=== PATIENT | female | born 1940 | race Caucasian/White ===

== ENCOUNTER 2017-01-18 16:53 | Emergency (ER) | payer MEDICARE, BC ==
[~2017-01-18 16:53] MED LIST: AMOX1TAB61 PO; IBUP-1227 PO; LOTE5DRO2 EACHEYE; NITR100C62 PO; PHEN-318 PO; [UNRECOGNIZED DRUG - OTHER]
[2017-01-18] MEDS ORDERED: CEPH500T PO (17:19)
[2017-01-18] MEDS ORDERED: MUPI15CR TP (17:19)
--- NOTE | 2017-01-18 17:23 | PHYS DOC ---
General Chief Complaint: LACERATION/AVULSION Stated Complaint: LACERATION LFT ARM Time Seen by MD: 17:17 Source: patient Exam Limitations: no limitations Problems: History of Present Illness Initial Comments Pt is 76/F to ED c/o left arm lac. 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 Caused skin avulsion dorsal left forearm. Td status uncertain. Pt skin very thin/friable, avulses easily. No numbness/tingling/weakness/ radiating sx, bleeding controlled prior to arrival. Onset: just prior to arrival Severity: moderate Pain/Injury Location: left forearm Method of Injury: direct blow Modifying Factors: worse with jarring, worse with movement, improves with rest Allergies: Coded Allergies: simvastatin (Verified Adverse Reaction, Severe, 06/25/14) codeine (Verified Adverse Reaction, Intermediate, 06/25/14) fluvastatin (Verified Adverse Reaction, Intermediate, 06/25/14) tramadol (Verified Adverse Reaction, Intermediate, 06/25/14) Past Medical History Medical History: other (asthma, GERD, HLP) Surgical History: noncontributory, other Family History Significant Family History: no pertinent family hx Social History Smoker: non-smoker Alcohol: none Drugs: none Review of Systems Constitutional: denies chills, denies fever Respiratory: denies cough, denies shortness of breath Cardiovascular: denies chest pain, denies palpitations Gastrointestinal: denies nausea, denies vomiting Genitourinary: denies frequency, denies hematuria Musculoskeletal: see HPI, denies back pain, denies neck pain Skin: see HPI Psychiatric/Neurological: see HPI Physical Exam General Appearance: WD/WN, no apparent distress HEENT: normal ENT inspection Neck: non-tender, supple Cardiovascular/Respiratory: normal peripheral pulses, no respiratory distress Elbow/Forearm: normal ROM (2cm stellate with very superficial flap avulsion dorsal left forearm no bleeding or FB. Skin too fragile to attempt closure) Neurologic/Tendon: normal sensation, normal motor functions, normal tendon functions, responds to pain, no evidence tendon injury Psychiatric: alert, oriented x 3 Skin: warm/dry (L forearm as above) Orders, Labs, Meds Td updated, will need to heal by 2nd intention. Pt expressed agreement/ understanding. Departure Time of Disposition: 17:21 Disposition: 01 HOME, SELF-CARE Diagnosis: skin avulsion left forearm Condition: GOOD Patient Instructions: Deep Skin Avulsion, VIS, Tetanus, Diphtheria (Td); Tetanus, Diphtheria, Pertussis (Tdap) - CDC Additional Instructions: OTC tylenol/ibuprofen as needed. Keep wound covered with sterile dressing. Wash wound twice daily with soap and warm water, blot dry. Change dressing/apply bactroban ointment each dressing change. Allow wound to air dry one hour daily. Rx: cephalexin Follow up with your doctor in 3 days for wound check. Return to ED with new or changing symptoms. JUVE ROLON DO January 18, 2017 17:23
[2017-01-18 17:38] VITALS: BP 151/75
[2017-01-18] MEDS ORDERED: CEPHALEXIN 500 MG CAPSULE PO ONE ×2 (17:45→18:15)
[2017-01-18] MEDS ORDERED: DIPHTH,PERTUSS(ACELL),TET TOX 0.5 ML DISP.SYRIN. VAX IM ONE ×2 (17:45→18:15)
== END 2017-01-18 17:38 | disposition home or self-care (01) ==
LOC: ER 16:53
DX: S51.802A Unspecified open wound of left forearm, initial encounter (principal); Z88.6 Allergy status to analgesic agent; Z88.8 Allergy status to other drugs, medicaments and biological substances; K21.9 Gastro-esophageal reflux disease without esophagitis; J45.909 Unspecified asthma, uncomplicated; E78.5 Hyperlipidemia, unspecified; W22.8XXA Striking against or struck by other objects, initial encounter; Y93.89 Activity, other specified; Y99.8 Other external cause status; Y92.89 Other specified places as the place of occurrence of the external cause
CPT/HCPCS: 90471; 90715; 99283-25

== ENCOUNTER → 2017-02-08 | Outpatient (CLI) | payer MEDICARE, BC ==
[2017-01-18 17:38] VITALS: BP 151/75
[~2017-02-08] MED LIST changes: +CEPH500T PO; +MUPI15CR TP
--- NOTE | 2017-02-08 11:49 | RAD ---
Indication left upper quadrant pain radiating into the back for 2 months. Supine and upright films of the abdomen were obtained The lung bases are clear. The abdominal gas pattern is normal. A moderate the large amount of stool is noted in the large bowel. Postoperative changes are noted in the lower lumbar spine. There is a clip in the gallbladder fossa. No organomegaly or abnormal calculi are seen. There is no free air. IMPRESSION: No acute or significant finding seen on plain films of the abdomen
== END | disposition home or self-care (01) ==
LOC: DXRADRC 11:22
PROVIDERS: ATTEND Physician Assistant
DX: R10.12 Left upper quadrant pain (principal)
CPT/HCPCS: 74020

== ENCOUNTER → 2017-02-11 | Outpatient (CLI) | payer MEDICARE, BC ==
[2017-01-18 17:38] VITALS: BP 151/75
[~2017-02-11] MED LIST changes: +IOHEXOL 240 MG/ML 50ML VIAL. ONE
[2017-02-11] MEDS: IOHEXOL 300 MG/ML 75 ML VIAL. IV ONE (09:04)
--- NOTE | 2017-02-11 10:28 | RAD ---
CT of the abdomen and pelvis with contrast, 02/21/2017: History: Left-sided pain Multidetector CT imaging was performed following oral and IV administration of contrast. The gallbladder is surgically absent. There is no evidence of a hepatic mass or significant bile duct dilatation. The pancreas is unremarkable. Calcified splenic granulomata are present. The spleen is of normal size. No renal or adrenal abnormality is detected. There is moderate aortic calcific plaquing without evidence of any present. No abdominal or pelvic adenopathy is seen. The uterus is unremarkable. The bowel loops are not dilated. There is a moderate amount of stool in the right colon. The appendix is not delineated. No dilated appendix or pericecal inflammatory process is seen. No free fluid or free air is evident in the abdomen or pelvis. There are scattered degenerative changes in the spine. There has been previous posterior spinal fusion and instrumentation at at L4-5. There is a mild spondylolisthesis at that level. IMPRESSION: No acute abdominal or pelvic abnormality is detected. PQRS Compliance Statement: One or more of the following individualized dose reduction techniques were utilized for this examination: 1. Automated exposure control 2. Adjustment of the mA and/or kV according to patient size 3. Use of iterative reconstruction technique
== END | disposition home or self-care (01) ==
LOC: CT 07:47
PROVIDERS: ATTEND Physician Assistant
DX: R10.9 Unspecified abdominal pain (principal); Z98.1 Arthrodesis status
CPT/HCPCS: 74177; Q9966; Q9967

== ENCOUNTER 2017-06-28 10:21 | Observation (INO) | payer MEDICARE, BC ==
[~2017-06-28] VITALS: Ht 165.1 cm; Wt 85.1 kg
[~2017-06-28 10:21] MED LIST changes: -IOHEXOL 240 MG/ML 50ML VIAL. ONE
[2017-06-28] MEDS ORDERED: IV NORMAL SALINE 1,000ML 1,000 ML IV SCH ×2 (10:42→13:18)
[2017-06-28] MEDS ORDERED: 0.9 % SODIUM CHLORIDE 10 ML DISP.SYRIN. IV PRN (10:45)
--- NOTE | 2017-06-28 10:59 | PHYS DOC ---
Past History Past Medical History: Asthma, GERD, High Cholesterol, UTI, Other Past Surgical History: Cholecystectomy, Lumbar Laminectomy, Tonsillectomy, Other Additional Past Surgical Histo: surgery 2, Hall's cyst behind left knee, Smoking: Non-smoker Alcohol Use: None Drug Use: None Adult General Chief Complaint Chief Complaint: CHEST PAIN HPI HPI This patient is a pleasant 76-year-old female with a history of chest pain that began yesterday evening. Last month she had right rotator cuff surgery has been doing well we happened since. She does have a history of hypertension, hyperlipidemia, asthma, anxiety, chronic lower back pain, chronic peripheral neuropathy, chronic intermittent reflux who presents with chest pain described as sharp and stabbing underneath the left breast. She's never had pain like this in the past pain began last night at rest while she is sitting a chair. It is short-lived lasting anywhere from 3-10 seconds with no radiation to the shoulder, back, abdomen. It is worsened with certain chest wall movements and shoulder movements. Patient denies any nausea, vomiting, diarrhea, fevers, chills, URI symptoms like cough or ear pain. Patient does have chronic rhinorrhea secondary to seasonal allergies. Patient's pains is sharp again worsened with movements better with time. Patient says pain is nonexistent at this time but has had several episodes during our history taking. She says at this point it is a maximum of 610 she's been taken Motrin daily to treat her shoulder pain and refuses to take [facility] as she's been prescribed. She's had a prior stress test several years ago and a prior catheterization. This last catheterization was sometime ago and she does not know results. Patient denies any trauma to her chest wall, travel outside the country. She denies any recent antibiotic use or sick contacts. Dr. Lopez is her cath lab tech, Dr. Bergeron is her PCP, is her wire frame dipper Differential diagnosis for chest pain: Pericarditis, myocarditis, endocarditis, pneumothorax, pneumonia, aortic dissection, esophageal spasm, esophagitis, peptic ulcer disease, acute coronary syndrome, mediastinitis, Boerhaave syndrome , musculoskeletal chest wall pain, costochondritis, intercostal strain, rib fracture, pulmonary contusion, pneumonitis, pleural effusion, pericardial effusion, pericardial tamponode, and pleurisy. Review of Systems Review of Systems Constitutional: Denies fever or chills [] Eyes: Denies change in visual acuity, redness, or eye pain [] HENT: Denies sore throat she does have nasal congestion [] Respiratory: Denies cough or shortness of breath [] Cardiovascular: No additional information not addressed in HPI [] GI: Denies abdominal pain, nausea, vomiting, bloody stools or diarrhea [] : Denies dysuria or hematuria [] Musculoskeletal: Denies back pain or joint pain [] Integument: Denies rash or skin lesions [] Neurologic: Denies headache, focal weakness she does have chronic sensory changes after surgery in her left lower leg that causes chronic pain and paresthesias Endocrine: Denies polyuria or polydipsia [] Current Medications Current Medications Current Medications Medications (Trade) Dose Ordered Sig/Hetal Start Time Stop Time Status Last Admin Dose Admin Aspirin (Children'S Aspirin) 243 mg 1X ONCE 06/28/17 10:45 06/28/17 10:46 UNV Sodium Chloride (Normal Saline Flush) 10 ml QSHIFT PRN 06/28/17 10:45 UNV Allergies Allergies Allergies Coded Allergies Type Severity Reaction Last Updated Verified simvastatin Adverse Reaction Severe 06/25/14 Yes codeine Adverse Reaction Intermediate 06/25/14 Yes fluvastatin Adverse Reaction Intermediate 06/25/14 Yes tramadol Adverse Reaction Intermediate 06/25/14 Yes Physical Exam Physical Exam Vital signs recorded on the chart.Hypertension noted Constitutional: Well developed, well nourished, patient obviously uncomfortable grabbing in her chest periodically during the history. HENT: Normocephalic, atraumatic, bilateral external ears normal, oropharynx moist, no oral exudates, nose normal. [] Eyes: PERRLA, EOMI, conjunctiva normal, no discharge. [] Neck: Normal range of motion, no tenderness, supple, no stridor. [] Cardiovascular:Heart rate regular rhythm, no murmur she has chest wall tenderness to palpation. Reproducible on exam over the left breast with no obvious changes in skin color tone or with rash. Lungs & Thorax: Bilateral breath sounds clear to auscultation [] Abdomen: Bowel sounds normal, soft, no tenderness, no masses, no pulsatile masses. [] Skin: Warm, dry, no erythema, no rash. [] Extremities: no cyanosis, no clubbing, ROM intact, no edema. She has marked tenderness to palpation over the left lower leg on the medial aspect of the knee with scar is. Patient claims this is chronic in nature and not new there is no localized swelling. Patient has had swelling in his lower leg in the past but nothing at this time. [] Neurologic: Alert and oriented X 3, normal motor function, normal sensory function, she has decreased sensation to the medial aspect of the left lower leg to light touch.[] Psychologic: Affect normal, judgement normal, she is somewhat anxious.[] Current Patient Data Vital Signs Vital Signs Date Time Temp Pulse Resp B/P (MAP) Pulse Ox O2 Delivery O2 Flow Rate FiO2 06/28/17 10:21 97.9 77 20 99 Room Air Lab Results Laboratory Tests Test 06/28/17 11:02 06/28/17 12:08 White Blood Count 5.4 x10^3/uL (4.0-11.0) Red Blood Count 4.45 x10^6/uL (3.50-5.40) Hemoglobin 12.8 g/dL (12.0-15.5) Hematocrit 38.2 % (36.0-47.0) Mean Corpuscular Volume 86 fL (79-100) Mean Corpuscular Hemoglobin 29 pg (25-35) Mean Corpuscular Hemoglobin Concent 33 g/dL (31-37) Red Cell Distribution Width 14.3 % (11.5-14.5) Platelet Count 251 x10^3/uL (140-400) Neutrophils (%) (Auto) 70 % (31-73) Lymphocytes (%) (Auto) 18 % (24-48) L Monocytes (%) (Auto) 8 % (0-9) Eosinophils (%) (Auto) 3 % (0-3) Basophils (%) (Auto) 1 % (0-3) Neutrophils # (Auto) 3.8 x10^3uL (1.8-7.7) Lymphocytes # (Auto) 1.0 x10^3/uL (1.0-4.8) Monocytes # (Auto) 0.4 x10^3/uL (0.0-1.1) Eosinophils # (Auto) 0.2 x10^3/uL (0.0-0.7) Basophils # (Auto) 0.1 x10^3/uL (0.0-0.2) D-Dimer (Stacia) 0.69 mg/L (0.00-0.50) H Sodium Level 141 mmol/L (136-145) Potassium Level 3.8 mmol/L (3.5-5.1) Chloride Level 104 mmol/L (98-107) Carbon Dioxide Level 29 mmol/L (21-32) Anion Gap 8 (6-14) Blood Urea Nitrogen 14 mg/dL (7-20) Creatinine 1.1 mg/dL (0.6-1.0) H Estimated GFR (Cockcroft-Gault) 48.3 BUN/Creatinine Ratio 13 (6-20) Glucose Level 93 mg/dL (70-99) Calcium Level 9.4 mg/dL (8.5-10.1) Magnesium Level 2.1 mg/dL (1.8-2.4) Total Bilirubin 0.4 mg/dL (0.2-1.0) Aspartate Amino Transferase (AST) 21 U/L (15-37) Alanine Aminotransferase (ALT) 26 U/L (14-59) Alkaline Phosphatase 42 U/L (46-116) L Creatine Kinase 98 U/L (26-192) Creatine Kinase MB (Mass) 0.9 ng/mL (0.0-3.6) Creatine Kinase MB Relative Index 0.9 % (0-4) Troponin I Quantitative < 0.017 ng/mL (0-0.055) TT-Wqb-M-Type Natriuretic Peptide 201 pg/mL (0-449) Total Protein 6.6 g/dL (6.4-8.2) Albumin 3.6 g/dL (3.4-5.0) Albumin/Globulin Ratio 1.2 (1.0-1.7) Lipase 121 U/L (73-393) Urine Collection Type Unknown Urine Color Yellow Urine Clarity Clear Urine pH 5.0 Urine Specific [place] <=1.005 Urine Protein Neg (NEG-TRACE) Urine Glucose (UA) Neg mg/dL (NEG) Urine Ketones (Stick) Neg mg/dL (NEG) Urine Blood Trace (NEG) Urine Nitrite Neg (NEG) Urine Bilirubin Neg (NEG) Urine Urobilinogen Dipstick 0.2 mg/dL (0.2 mg/dL) Urine Leukocyte Esterase Mod (NEG) Urine RBC 0 /HPF (0-2) Urine WBC 1-4 /HPF (0-4) Urine Squamous Epithelial Cells Occ /LPF Urine Bacteria 0 /HPF (0-FEW) EKG EKG []EKG timed 10:30 AM read by me demonstrates a PTT of QRS normal sinus rhythm with a heart rate of 74 IA interval 174 which is normal, QRS width of 72 which is normal, QTC of 424 which is normal, patient is a slight abnormal left axis deviation no ST segment or T-wave changes consistent with acute coronary ischemia. Radiology/Procedures Radiology/Procedures [] [address] [address] IMAGING REPORT Signed PATIENT: TOMMIE MEDRANO ACCOUNT: [id number] : 1940 LOCATION: ER AGE: 76 SEX: F EXAM STATUS: REG ER ORD. PHYSICIAN: BO ELI MD REASON: recent surgery and chest pain PROCEDURE: CT ANGIOGRAPHY CHEST CT angiography chest 06/28/2017 Indication: Left chest pain with recent surgery to the right shoulder. Have of comparison: CT chest 09/23/2015 Technique: Multiple axial CT images of the chest were obtained after the administration of 60 mL Omnipaque 300 intravenously. Coronal and sagittal reformats are provided. Maximum intensity projection images of the pulmonary vasculature were performed. Findings: Subcentimeter calcified nodule is identified in the right thyroid gland measuring 3-4 mm. Few scattered subcentimeter hypodense nodules are identified. There are no pathologically enlarged axillary, mediastinal or hilar lymph nodes. Heart size is within normal limits. Thoracic aorta is mildly ectatic measuring 3.7 cm at the level of the proximal aortic arch. There is no pericardial effusion. There is adequate opacification the pulmonary arterial system. No filling defects are identified to suggest pulmonary embolism. There is a 3 mm solid noncalcified pulmonary nodule in the right middle lobe (series 4, image 85). This finding is stable dating back to 09/23/2015 and likely benign. There is a 3 mm calcified granuloma in the right lower lobe. There is subsegmental atelectasis in the lung bases bilaterally. There are no pleural effusions. No pulmonary vascular congestion or pneumothorax. No suspicious pulmonary infiltrates. Calcified granuloma identified within the spleen. Otherwise, visualized upper abdomen is within normal limits. Impression: 1. No evidence for acute pulmonary embolism. 2. 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 Neck sign 3. Bibasilar subsegmental atelectasis without focal airspace consolidation. PQRS Compliance Statement: One or more of the following individualized dose reduction techniques were utilized for this examination: 1. Automated exposure control 2. Adjustment of the mA and/or kV according to patient size 3. Use of iterative reconstruction technique DICTATED AND SIGNED BY: JOSE D SALGUERO MD DATE: 06/28/17 1238 CC: BO ELI MD; MOHSEN [place]CLAIN ~ [place] [address] IMAGING REPORT Signed PATIENT: TOMMIE MEDRANO ACCOUNT: [id number] : 1940 LOCATION: ER AGE: 76 SEX: F EXAM STATUS: REG ER ORD. PHYSICIAN: BO ELI MD REASON: chest pain PROCEDURE: PORTABLE CHEST 1V Portable chest, 06/28/2017: History: Chest pain Comparison is made to a study from 09/22/2011. The heart size and pulmonary vascularity are normal. There are granulomatous calcifications in the left chest. No pulmonary infiltrates are seen. There is no evidence of pleural fluid. IMPRESSION: No acute cardiopulmonary abnormality is detected. DICTATED AND SIGNED BY: JG PAUL MD DATE: 06/28/17 1115 CC: BO ELI MD; MOHS[facility] MCLAIN ~ Course & Med Decision Making Course & Med Decision Making Pertinent Labs and Imaging studies reviewed. (See chart for details) Differential diagnosis for chest pain: Pericarditis, myocarditis, endocarditis, pneumothorax, pneumonia, aortic dissection, esophageal spasm, esophagitis, peptic ulcer disease, acute coronary syndrome, mediastinitis, Boerhaave syndrome , musculoskeletal chest wall pain, costochondritis, intercostal strain, rib fracture, pulmonary contusion, pneumonitis, pleural effusion, pericardial effusion, pericardial tamponode, and pleurisy. Was considered upon patient arrival my initial concern was pulmonary ecchymosis and given recent history of surgery and acute onset of pleuritic chest pain. Patient denies any recent URI symptoms other than chronic congestion this may help represent pericarditis or another inflammatory processes of the heart. Patient also has had history of high cholesterol and hypertension and a prior catheterization. It is likely that she has significant heart disease although not demonstrating any sign of injury pattern at this time on initial EKG. Patient has never had chest pain like this in the past so she will likely require hospitalization despite the findings today. Time is now 12 PM patient feels markedly better is resting with no repeat episodes of her chest pain. Patient has an elevated d-dimer and given her recent history of surgery. Is positive as of evidence below. Patient will need a CT angios the chest rule out PE. Criteria: Age < than 50 years Heart rate < 100 Oxygen saturation > 95% No hemoptysis No estrogen use No prior DVT or PE No unilateral leg swelling No surgery or trauma requiring hospitalization within the prior 4 weeks []Patient's troponin is negative, EKG is unremarkable and chest x-rays unremarkable as well. Patient has no evidence of congestive heart failure pneumothorax pneumonia or pneumomediastinum. But given the patient's new chest pain and risk factors likely that she is intermediate risk based on my heart score History: She is intermediate based on the history provided below. Age, risk factors and suspicious history Highly suspicious 2 points moderately suspicious 1. slightly suspicious 0 point EKG: ST segment depression 2. nonspecific repolarization disturbance 1. normal 0 point Age: Greater than 65 2 points, 65-45 1., less than 45 years old 0 points Risk factors:> 3 risk factors 2 points, 1-2 risk factors one point, no risk factors 0 point Troponin: > 2 times normal 2 points, 1-2 times normal 1., normal limits 0 point Total score: Score % pts MACE/n MACE Policy 0-3 32% 1.9% 0.05% Discharge 4-6 51% 413/3136 13% 1.3% Observation Risk management 7-10 17% 518/1045 50% 2.8% Observation Treatment, CAG Amf Mechanic note: Dr. GUCCI Barton Amf Mechanic called at of the service internal medicine service called at 1:15 PM Consult called back at 1:15 PM Discussed the case I presented and they agreed with admission. Time of acceptance 1:15 PM Impression: Chest pain unclear etiology, hypertension Dragon Disclaimer Edel Disclaimer This chart was dictated in whole or in part using Voice Recognition software in a busy, high-work load, and often noisy Emergency Department environment. It may contain unintended and wholly unrecognized errors or omissions. Departure Departure: Impression: Primary Impression: Chest pain Additional Impression: Hypertension Disposition: 09 ADMITTED INPATIENT Admitting Physician: Jan López Condition: GUARDED Referrals: MOHSEN MCLAIN (PCP) Problem Qualifiers BO ELI MD Jun 28, 2017 10:59
--- NOTE | 2017-06-28 11:04 | EKG ---
[address] [address] Test Date: 2017-06-28 Test Time: 09:02:29 Pat Name: TOMMIE MEDRANO Department: Room: Gender: F [employer] Worker: SORAYA: 1940 Requested By: BO ELI Order Number: [id number] Reading MD: Measurements Intervals [place] Rate: P: FL: QRS: QRSD: T: QT: QTc: Interpretive Statements
[2017-06-28 11:14] LABS: BASO # 0.1 x10^3/uL (0.0-0.2); BASO % 1 % (0-3); EOS # 0.2 x10^3/uL (0.0-0.7); EOS % 3 % (0-3); HEMATOCRIT 38.2 % (36.0-47.0); HEMOGLOBIN 12.8 g/dL (12.0-15.5); LYMPH % 18 % (24-48); MEAN CORPUSCULAR HEMOGLOBIN 29 pg (25-35); MEAN CORPUSCULAR HGB CONC 33 g/dL (31-37); MEAN CORPUSCULAR VOLUME 86 fL (79-100); MONO # 0.4 x10^3/uL (0.0-1.1); MONO % 8 % (0-9); NEUT # 3.8 x10^3uL (1.8-7.7); NEUT % 70 % (31-73); PLATELET COUNT 251 x10^3/uL (140-400); RED BLOOD COUNT 4.45 x10^6/uL (3.50-5.40); RED CELL DISTRIBUTION WIDTH 14.3 % (11.5-14.5); WHITE BLOOD COUNT 5.4 x10^3/uL (4.0-11.0)
[2017-06-28] MEDS ORDERED: LORazepam 2 MG/ML VIAL IV ONE (11:15)
[2017-06-28] MEDS ORDERED: ASPIRIN 81 MG TAB.CHEW PO ONE (11:15)
--- NOTE | 2017-06-28 11:18 | RAD ---
Portable chest, 06/28/2017: History: Chest pain Comparison is made to a study from 09/22/2011. The heart size and pulmonary vascularity are normal. There are granulomatous calcifications in the left chest. No pulmonary infiltrates are seen. There is no evidence of pleural fluid. IMPRESSION: No acute cardiopulmonary abnormality is detected.
[2017-06-28 11:38] LABS: ALBUMIN 3.6 g/dL (3.4-5.0); ALBUMIN/GLOBULIN RATIO 1.2 (1.0-1.7); CALCIUM 9.4 mg/dL (8.5-10.1); CREATININE 1.1 mg/dL (0.6-1.0); GFR 48.3; MAGNESIUM 2.1 mg/dL (1.8-2.4); POTASSIUM 3.8 mmol/L (3.5-5.1); TOTAL BILIRUBIN 0.4 mg/dL (0.2-1.0); TOTAL PROTEIN 6.6 g/dL (6.4-8.2)
[2017-06-28 12:29] LABS: BACTERIA,URINE 0 /HPF (0-FEW); BILIRUBIN,URINE NEG (NEG); CLARITY,URINE CLEAR; COLOR,URINE YELLOW; GLUCOSE,URINE NEG (NEG); NITRITE,URINE NEG (NEG); RBC,URINE 0 /HPF (0-2); UROBILINOGEN,URINE 0.2 mg/dL (0.2 mg/dL)
[2017-06-28 12:30] LABS: SQUAMOUS EPITHELIAL CELL,UR OCC /LPF
[2017-06-28] MEDS ORDERED: IOHEXOL 300 MG/ML 75 ML VIAL. IV ONE (12:30)
--- NOTE | 2017-06-28 12:48 | RAD ---
CT angiography chest 06/28/2017 Indication: Left chest pain with recent surgery to the right shoulder. Have of comparison: CT chest 09/23/2015 Technique: Multiple axial CT images of the chest were obtained after the administration of 60 mL Omnipaque 300 intravenously. Coronal and sagittal reformats are provided. Maximum intensity projection images of the pulmonary vasculature were performed. Findings: Subcentimeter calcified nodule is identified in the right thyroid gland measuring 3-4 mm. Few scattered subcentimeter hypodense nodules are identified. There are no pathologically enlarged axillary, mediastinal or hilar lymph nodes. Heart size is within normal limits. Thoracic aorta is mildly ectatic measuring 3.7 cm at the level of the proximal aortic arch. There is no pericardial effusion. There is adequate opacification the pulmonary arterial system. No filling defects are identified to suggest pulmonary embolism. There is a 3 mm solid noncalcified pulmonary nodule in the right middle lobe (series 4, image 85). This finding is stable dating back to 09/23/2015 and likely benign. There is a 3 mm calcified granuloma in the right lower lobe. There is subsegmental atelectasis in the lung bases bilaterally. There are no pleural effusions. No pulmonary vascular congestion or pneumothorax. No suspicious pulmonary infiltrates. Calcified granuloma identified within the spleen. Otherwise, visualized upper abdomen is within normal limits. Impression: 1. No evidence for acute pulmonary embolism. 2. 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 Neck sign 3. Bibasilar subsegmental atelectasis without focal airspace consolidation. PQRS Compliance Statement: One or more of the following individualized dose reduction techniques were utilized for this examination: 1. Automated exposure control 2. Adjustment of the mA and/or kV according to patient size 3. Use of iterative reconstruction technique
[2017-06-28] MEDS ORDERED: ACETAMINOPHEN 325 MG TABLET PO PRN (13:30)
[2017-06-28] MEDS ORDERED: MORPHINE SULFATE 2 MG/ML DISP.SYRIN. IV PRN (13:30)
[2017-06-28] MEDS ORDERED: ONDANSETRON PF 4 MG/2 ML VIAL. IV PRN (13:30)
[2017-06-28 15:01] VITALS: BP 144/68
[2017-06-28 15:03] VITALS: BP 144/68
[2017-06-28] MEDS ORDERED: ALBU1.25 NEB (18:39)
[2017-06-28] MEDS ORDERED: EZET10TA18 PO (18:39)
[2017-06-28] MEDS ORDERED: CALC1TAB75 PO (18:39)
[2017-06-28] MEDS ORDERED: PANT40TA5 PO (18:39)
[2017-06-28] MEDS ORDERED: FAMO40TA4 PO (18:39)
[2017-06-28] MEDS ORDERED: FLUT250D IH (18:39)
[2017-06-28] MEDS ORDERED: VITA1CAP PO (18:39)
[2017-06-28] MEDS ORDERED: ASPI-630 PO (18:39)
[2017-06-28] MEDS ORDERED: IBUP400T18 PO (18:40)
[2017-06-28] MEDS ORDERED: IBUPROFEN 400 MG TABLET. PO PRN (18:45)
--- NOTE | 2017-06-28 19:18 | HP ---
ADMIT DATE: 06/28/2017 HISTORY OF PRESENT ILLNESS: This patient is a 76-year-old female patient who came to the Emergency Room with a complaint of recurrent episodes of chest pain that started yesterday evening. Apparently, she had had rotator cuff surgery done last month specifically on 05/24/2017, and has been doing well and she normally sits and sleeps in a recliner and she started having acute severe pain that she rates about 6/10 in severity while sitting in a chair. Episodes of short lived, lasting anywhere between 3-10 seconds without any radiation to the shoulder, back, abdomen. It is worsened with certain chest wall movement and shoulder movements. She denied any nausea, vomiting, diarrhea, fever or chills. She does have a cough, but does have chronic rhinorrhea secondary to seasonal allergies. She had a total of about 7 of these episodes, but no nausea, no vomiting, no diaphoresis, no shortness of breath, they all brief. Apparently, she has had a stress test done several years ago as well as prior catheterization. Apparently both of them were unremarkable. Her last stress test was done at [facility] and apparently was unremarkable. PAST MEDICAL HISTORY: Significant for hypertension, hyperlipidemia, bronchial asthma, anxiety, chronic lower back pain, chronic peripheral neuropathy, gastroesophageal reflux disease. PAST SURGICAL HISTORY: Significant for 2 bladder surgeries, 2 back surgeries, cholecystectomy, bilateral cataract extraction, right shoulder surgery on 05/24/2017. She has also had an esophagogastroduodenoscopy and colonoscopy. ALLERGIES: She is apparently allergic to CODEINE, CRESTOR, SIMVASTATIN, AND TRAMADOL WELL PENICILLIN. MEDICATIONS: She is currently on following medications: She is on Augmentin 875 mg twice a day, cephalexin 500 mg 3 times a day, ibuprofen 200 mg, she is on Lotemax one drop to each eye 4 times a day, Bactroban cream applied topically twice a day. She is on nitrofurantoin 100 mg capsule twice a day, phenazopyridine 200 mg 3 times a day. FAMILY HISTORY: She has 1 older sister who of non-Hodgkin's lymphoma at age of 81. She has 1 younger sister who has osteoarthritis, had a total knee arthroplasty and peripheral neuropathy. Her father of multiple aneurysms at the age of 70. Her mother at age 91 because of old age, according to her, but she did have cervical cancer. SOCIAL HISTORY: She is , she has two daughters and 1 son. One daughter has breast cancer, the other one has thyroid cancer. She does not smoke, drink alcohol or use recreational drugs. 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 REVIEW OF SYSTEMS: The patient denied any blurring of vision. She has cataracts, but denied any glaucoma or macular degeneration. Denied any earache, tinnitus or sensorineural deafness. Denied any nosebleeds, stuffy nose or postnasal drip. Denied any sore throat, sore tongue, toothache, hoarseness of voice or difficulty swallowing. Denied any nausea, vomiting, diarrhea, did complain of constipation. Denied any hematemesis, melena or hematochezia. Denied any dysuria, frequency or hematuria. Did complain of chest pain, but denied any shortness breath, orthopnea, paroxysmal nocturnal dyspnea. She has chronic cough, but denied any phlegm or hemoptysis. Denied any dizziness, lightheadedness, or vertigo. Denied any chills, rigors or fever. PHYSICAL EXAMINATION: GENERAL: When I examined her, she looked well and was clearly in no apparent respiratory distress, pale, no jaundice, cyanosis or thyromegaly. No jugular venous distention. No limb edema. VITAL SIGNS: Her heart rate was 77, blood pressure was 140/85, temperature was 97.9, respiratory rate 20, and oxygen saturation was 99%. HEAD, EYES, EARS, NOSE AND THROAT: Showed normocephalic, atraumatic. NECK: Supple. HEART: Showed normal first and second heart sounds with no gallop, rub or murmur. CHEST: Clear to auscultation. No crepitation or rhonchi. ABDOMEN: Distended, soft, nontender. No guarding or rigidity. No organomegaly. Hernial orifices intact. Bowel sounds normal. NEUROLOGIC: She was awake, alert, responding appropriately. Cranial nerves intact. EXTREMITIES: She moves all her extremities without difficulty. She ambulates without assistance or assistive devices. LABORATORY DATA: While in the Emergency Room, she has had lab work done, which showed a serum sodium 141, potassium 3.8, chloride 104, bicarbonate 29, anion gap of 8, BUN 14, creatinine 1.1, estimated GFR was 48 mL per minute. Her glucose was 93, calcium was 9.4, magnesium was 2.1. Total bilirubin, AST, ALT, alkaline phosphatase were normal. Her total protein was 6.6, albumin 3.6 and lipase was 121. TSH was 1.5. White cell count was 5400, hemoglobin 12.8, hematocrit 38, MCV 86 and platelet count 251,000. Her prothrombin time was slightly elevated at 0.69 mg/dL. Urinalysis was essentially unremarkable. There is moderate amount of leukocyte esterase, 1-4 wbc's, and 0 bacteria. Her EKG showed that she was in sinus rhythm with a heart rate 74, AK interval of 174 milliseconds, QRS duration of 72 milliseconds and corrected QT interval of 424 which is normal. She has slight abnormal left axis deviation with no ST segment elevation or T-wave changes that is consistent with acute coronary ischemia. Given that chest pain and elevated D-dimer, she underwent a CT angiography of the chest, which basically showed no evidence of acute pulmonary embolism, mild ectasia of the ascending thoracic aorta measuring up to 3.7 cm with bibasilar subsegmental atelectasis without focal airspace consolidations. Her first set of cardiac enzyme was 0.017. She did have 2 more sets of cardiac enzyme. We consulted the aspnet developer for evaluation and she will have an echocardiogram and we will decide on further management accordingly. FLORES GUTIERREZ MD DR: RADHA/shorty JOB#: [id number] / [id number]
[2017-06-28 19:28] VITALS: BP 119/75
[2017-06-28] MEDS: ALBUTEROL SULFATE 2.5 MG/3 ML NEBU. NEB SCH (20:03)
[2017-06-28] MEDS: FLUTICASONE PROPIONATE 250 MCG IH SCH (20:03)
[2017-06-28] MEDS ORDERED: FAMOTIDINE 20 MG TABLET PO SCH (21:00)
[2017-06-28] MEDS ORDERED: NON FORMULARY ITEM (Albuterol Sulfate (Albuterol Sulfate Neb Soln) 1 VIAL) NEB SCH (21:00)
[2017-06-28 23:00] VITALS: BP 109/58
[2017-06-29 05:00] VITALS: BP 135/73
[2017-06-29 06:01] LABS: BASO # 0.1 x10^3/uL (0.0-0.2); BASO % 1 % (0-3); EOS # 0.2 x10^3/uL (0.0-0.7); EOS % 4 % (0-3); HEMATOCRIT 35.1 % (36.0-47.0); HEMOGLOBIN 11.6 g/dL (12.0-15.5); LYMPH # 0.9 x10^3/uL (1.0-4.8); LYMPH % 21 % (24-48); MEAN CORPUSCULAR HEMOGLOBIN 29 pg (25-35); MEAN CORPUSCULAR HGB CONC 33 g/dL (31-37); MEAN CORPUSCULAR VOLUME 87 fL (79-100); MONO # 0.4 x10^3/uL (0.0-1.1); MONO % 9 % (0-9); NEUT # 2.8 x10^3uL (1.8-7.7); NEUT % 65 % (31-73); PLATELET COUNT 214 x10^3/uL (140-400); RED BLOOD COUNT 4.03 x10^6/uL (3.50-5.40); RED CELL DISTRIBUTION WIDTH 14.1 % (11.5-14.5); WHITE BLOOD COUNT 4.4 x10^3/uL (4.0-11.0)
[2017-06-29 06:08] LABS: CALCIUM 9.1 mg/dL (8.5-10.1); CREATININE 0.9 mg/dL (0.6-1.0); GFR 60.9; POTASSIUM 4.1 mmol/L (3.5-5.1)
--- NOTE | 2017-06-29 07:52 | CARD ---
APPROVED REPORT EXAM: Two-dimensional and M-mode echocardiogram with Doppler and color Doppler. Other Information Quality : Good INDICATION Chest Pain 2D DIMENSIONS RVDd2.6 (2.9-3.5cm)Left Atrium(2D)3.2 (1.6-4.0cm) IVSd0.8 (0.7-1.1cm)Aortic Root(2D)3.1 (2.0-3.7cm) LVDd4.3 (3.9-5.9cm)LVOT Diameter2.1 (1.8-2.4cm) PWd1.0 (0.7-1.1cm)LVDs2.6 (2.5-4.0cm) FS (%) 30.0 %SV60.0 ml LVEF(%)60.0 (>50%) Aortic Valve AoV Peak Doni.112.2cm/sAoV VTI26.1cm AO Peak GR.5.0mmHgLVOT Peak Doni.115.4cm/s LVOT VTI 24.31cmAO Mean GR.3mmHg MITCHEL (VMAX)3.17ii6VSO (VTI)3.36cm2 Mitral Valve MV E Uerwfwzm273.1cm/sMV DECEL POIE169uy MV A Lwkxeaii764.3cm/sE/A Ratio0.9 Tricuspid Valve TR P. Kzcgwdqh984ew/sRAP NWURVXLO0xkWe TR Peak Gr.08eyVrPMQL81xpWx Pulmonary Vein S1 Qrluqreo02.9cm/sD2 Dywltlni50.1cm/s LEFT VENTRICLE The left ventricle is normal size. There is normal left ventricular wall thickness. The left ventricu lar systolic function is normal. The Ejection Fraction is 55-60%. There is normal LV segmental wall m otion. Transmitral Doppler flow pattern is Grade I-abnormal relaxation pattern. RIGHT VENTRICLE The right ventricle is normal size. The right ventricular systolic function is normal. ATRIA The left atrium size is normal. The right atrium size is normal. The interatrial septum is intact wit h no evidence for an atrial septal defect or patent foramen ovale as noted on 2-D or Doppler imaging. AORTIC VALVE The aortic valve is calcified but opens well. Doppler and Color Flow revealed trace aortic regurgitat ion. There is no significant aortic valvular stenosis. MITRAL VALVE The mitral valve is calcified but opens well. There is no evidence of mitral valve prolapse. There is no mitral valve stenosis. Doppler and Color-flow revealed trace mitral regurgitation. TRICUSPID VALVE The tricuspid valve is normal in structure and function. Doppler and Color Flow revealed mild tricusp id regurgitation. There is mild pulmonary hypertension. The PA pressure was estimated at 35 mmHg. The re is no tricuspid valve stenosis. PULMONIC VALVE The pulmonary valve is normal in structure and function. Doppler and Color Flow revealed trace to mil d pulmonic valvular regurgitation. There is no pulmonic valvular stenosis. GREAT VESSELS The aortic root is normal in size. The ascending aorta is normal in size. The IVC is normal in size a nd collapses >50% with inspiration. PERICARDIAL EFFUSION There is no evidence of significant pericardial effusion. Critical Notification Critical Value: No <Conclusion> The left ventricular systolic function is normal. The Ejection Fraction is 55-60%. There is normal LV segmental wall motion. Trace aortic regurgitation. Trace mitral regurgitation. Mild tricuspid regurgitation. There is mild pulmonary hypertension. The PA pressure was estimated at 35 mmHg. There is no evidence of significant pericardial effusion.
[2017-06-29 08:54] VITALS: BP 118/77
[2017-06-29] MEDS ORDERED: CALCIUM CARB/VIT D3 500/200 TABLET PO SCH (09:00)
[2017-06-29] MEDS ORDERED: ASPIRIN 81 MG TAB.CHEW PO SCH (09:00)
[2017-06-29] MEDS ORDERED: VITAMIN B COMPLEX CAPSULE. PO SCH (09:00)
[2017-06-29] MEDS ORDERED: PANTOPRAZOLE 40 MG TABLET. PO SCH (09:00)
[2017-06-29] MEDS ORDERED: EZETIMIBE 10 MG TABLET PO SCH (09:00)
--- NOTE | 2017-06-29 09:14 | PDOC2 ---
CONSULT Date of Admission DATE: 06/29/17 TIME: 08:57 Reason for Consult: chest pain Problem List Problems Medical Problems: (1) Chest pain Status: Acute (2) Hypertension Status: Acute History of Present Illness Ms Cisneros is a 76 year old female who presented to the ED with complaints of chest pain. She reports a tight feeling behind her left breast occurring both with rest and exertion and lasting only a couple of seconds. She had several episodes starting in the early am while in bed and reoccurring throughout the day so she presented for evaluation. She denies radiation or associated symptoms. She initially reported to the ED that the pain seemed to be associated with certain upper body movements but at this time is unsure. She does have a history of a mildly abnormal MPI in 2014 but elected medical management at that time. She is s/p right rotator cuff surgery last month and continues in rehab for this. She is still unable to lay flat at this time due to shoulder discomfort. She denies any dyspnea, palpitations, lightheadedness or syncope. She states she wants to go home. Past Medical History hypertension, hyperlipidemia, bronchial asthma, anxiety, chronic lower back pain , chronic peripheral neuropathy, GERD. echo <Conclusion> The left ventricular systolic function is normal. The Ejection Fraction is 55-60%. There is normal LV segmental wall motion. Trace aortic regurgitation. Trace mitral regurgitation. Mild tricuspid regurgitation. There is mild pulmonary hypertension. The PA pressure was estimated at 35 mmHg. There is no evidence of significant pericardial effusion. MPI 11/14/14 Conclusion 1. Regadenoson cardioisotope stress test showed small amount of anteroapical wall ischemia. 2. Normal left ventricle systolic function with ejection fraction >80%. 3. Low to intermediate risk for cardiovascular events. Past Surgical History 2 bladder surgeries, 2 back surgeries, cholecystectomy, bilateral cataract extraction, right shoulder surgery on 05/24/2017. Family History 1 older sister who of non-Hodgkin's lymphoma Her father of multiple aneurysms at the age of 70. additional family history consists of arthritis and cervical cancer, breast cancer. Social History She is a non smoker, no significant ETOH, no illicit drugs. She is with 3 children. Current Medications Current Medications Aspirin (Children'S Aspirin) 243 mg 1X ONCE PO Last administered on t 11:09; Start 06/28/17 at 11:15; Stop 06/28/17 at 11:16; Status DC Sodium Chloride 1,000 ml @ 1,000 mls/hr Q1H IV Last administered on 11:08; Start 06/28/17 at 10:42; Stop 06/28/17 at 11:41; Status DC Sodium Chloride (Normal Saline Flush) 10 ml QSHIFT PRN IV AFTER MEDS AND BLOOD DRAWS; Start 06/28/17 at 10:45 Fentanyl Citrate (Fentanyl 2ml Vial) 50 mcg 1X ONCE IV Last administered on 11:11; Start 06/28/17 at 11:15; Stop 06/28/17 at 11:16; Status DC Lorazepam (Ativan) 1 mg 1X ONCE IV Last administered on 06/28/17 11:14; Start 06/28/17 at 11:15; Stop 06/28/17 at 11:16; Status DC Iohexol (Omnipaque 300 Mg/ml) 75 ml 1X ONCE IV ; Start 06/28/17 at 12:30; Stop 06/28/17 at 12:31; Status DC Ondansetron HCl (Zofran) 4 mg PRN Q4HRS PRN IV NAUSEA/VOMITING; Start at 13:30; Stop 06/29/17 at 13:29 Morphine Sulfate (Morphine 2mg Syringe) 2 mg PRN Q2HR PRN IV PAIN; Start 06/28 at 13:30; Stop 06/29/17 at 13:29 Sodium Chloride 1,000 ml @ 100 mls/hr Q10H IV ; Start 06/28/17 at 13:18; Stop 06/28/17 at 16:57; Status DC Acetaminophen (Tylenol) 650 mg PRN Q4HRS PRN PO FEVER; Start 06/28/17 at 13:30 ; Stop 06/29/17 at 13:29 Aspirin (Children'S Aspirin) 81 mg DAILY PO ; Start 06/29/17 at 09:00 EZETIMIBE (Zetia) 10 mg DAILY PO ; Start 06/29/17 at 09:00 Pantoprazole Sodium (Protonix) 40 mg DAILY PO ; Start 06/29/17 at 09:00 Vitamin B Complex 1 cap DAILY PO ; Start 06/29/17 at 09:00 Non-Formulary Medication 1 vial BID NEB ; Start 06/28/17 at 21:00; Status UNV Calcium/Vitamin D (Oscal D 500mg/ 200uts) 1 tab DAILY PO ; Start 06/29/17 at 09 :00 Famotidine (Pepcid) 40 mg HS PO Last administered on 06/28/17 20:03; Start 06/28/17 at 21:00 Non-Formulary Medication 250 mcg BID IH Last administered on 06/28/17 20:03; Start 06/28/17 at 21:00 Ibuprofen (Motrin) 400 mg PRN Q6HRS PRN PO PAIN / TEMP; Start 06/28/17 at 18: 45 Albuterol Sulfate (Ventolin) 2.5 mg RTBID NEB Last administered on 06/28/17 20:03; Start 06/28/17 at 20:00 Active Scripts Active Reported Ibuprofen 400 Mg Tablet 1 Tab PO PRN Q6HRS Aspirin 81 Mg Tab.chew 81 Mg PO DAILY Vitamin B Complex 1 Each Capsule 1 Each PO DAILY Calcium 600 + Vit D 200 Tablet (Calcium Carbonate/Vitamin D3) 1 Each Tablet 1 Each PO DAILY Flovent 250MCG Diskus (Fluticasone Propionate) 250 Mcg Disk.w.dev 250 Mcg IH BID Albuterol Sulfate Neb Soln (Albuterol Sulfate) 1.25 Mg/3 Ml Vial.neb 1 Vial NEB BID Famotidine 40 Mg Tablet 1 Tab PO HS Pantoprazole Sodium 40 Mg Tablet.dr 1 Tab PO DAILY Zetia (Ezetimibe) 10 Mg Tablet 1 Tab PO DAILY Allergies: Coded Allergies: Sulfa (Sulfonamide Antibiotics) (Verified Allergy, Severe, HIVES, 06/28/17 ) acetaminophen (Verified Allergy, Severe, DISORIENTED, VOMITING VIOLENT, ) ciprofloxacin (Verified Allergy, Severe, HIVES, 06/28/17) oxycodone (Verified Allergy, Severe, DISORIENTED, VOMITING VIOLENT, ) simvastatin (Verified Adverse Reaction, Severe, 06/25/14) codeine (Verified Adverse Reaction, Intermediate, 06/25/14) fluvastatin (Verified Adverse Reaction, Intermediate, 06/25/14) tramadol (Verified Adverse Reaction, Intermediate, 06/25/14) Review of System as per HPI or negative General: Alert, Oriented X3, Cooperative, No acute distress HEENT: Atraumatic, EOMI Lungs: Clear to auscultation, Normal air movement Heart: Regular rate, Normal S1, Normal S2, No murmurs, Other (no gallops, clicks or rubs) Abdomen: Normal bowel sounds, Soft, No tenderness Extremities: No clubbing, No cyanosis, Normal pulses Neuro: Normal speech Psych/Mental Status: Mental status NL, Mood NL VITALS Vital Signs Date Time Temp Pulse Resp B/P (MAP) Pulse Ox O2 Delivery O2 Flow Rate FiO2 06/29/17 05:00 97.8 81 20 135/73 (93) 97 Room Air Labs Laboratory Tests Test 06/28/17 11:02 06/28/17 12:08 06/28/17 19:10 06/29/17 00:37 White Blood Count 5.4 x10^3/uL (4.0-11.0) Red Blood Count 4.45 x10^6/uL (3.50-5.40) Hemoglobin 12.8 g/dL (12.0-15.5) Hematocrit 38.2 % (36.0-47.0) Mean Corpuscular Volume 86 fL (79-100) Mean Corpuscular Hemoglobin 29 pg (25-35) Mean Corpuscular Hemoglobin Concent 33 g/dL (31-37) Red Cell Distribution Width 14.3 % (11.5-14.5) Platelet Count 251 x10^3/uL (140-400) Neutrophils (%) (Auto) 70 % (31-73) Lymphocytes (%) (Auto) 18 % (24-48) Monocytes (%) (Auto) 8 % (0-9) Eosinophils (%) (Auto) 3 % (0-3) Basophils (%) (Auto) 1 % (0-3) Neutrophils # (Auto) 3.8 x10^3uL (1.8-7.7) Lymphocytes # (Auto) 1.0 x10^3/uL (1.0-4.8) Monocytes # (Auto) 0.4 x10^3/uL (0.0-1.1) Eosinophils # (Auto) 0.2 x10^3/uL (0.0-0.7) Basophils # (Auto) 0.1 x10^3/uL (0.0-0.2) D-Dimer (Stacia) 0.69 mg/L (0.00-0.50) Sodium Level 141 mmol/L (136-145) Potassium Level 3.8 mmol/L (3.5-5.1) Chloride Level 104 mmol/L (98-107) Carbon Dioxide Level 29 mmol/L (21-32) Anion Gap 8 (6-14) Blood Urea Nitrogen 14 mg/dL (7-20) Creatinine 1.1 mg/dL (0.6-1.0) Estimated GFR (Cockcroft-Gault) 48.3 BUN/Creatinine Ratio 13 (6-20) Glucose Level 93 mg/dL (70-99) Calcium Level 9.4 mg/dL (8.5-10.1) Magnesium Level 2.1 mg/dL (1.8-2.4) Total Bilirubin 0.4 mg/dL (0.2-1.0) Aspartate Amino Transf (AST/SGOT) 21 U/L (15-37) Alanine Aminotransferase (ALT/SGPT) 26 U/L (14-59) Alkaline Phosphatase 42 U/L (46-116) Creatine Kinase 98 U/L (26-192) Creatine Kinase MB (Mass) 0.9 ng/mL (0.0-3.6) Creatine Kinase MB Relative Index 0.9 % (0-4) Troponin I Quantitative < 0.017 ng/mL (0-0.055) < 0.017 ng/mL (0-0.055) < 0.017 ng/mL (0-0.055) JS-Tab-V-Type Natriuretic Peptide 201 pg/mL (0-449) Total Protein 6.6 g/dL (6.4-8.2) Albumin 3.6 g/dL (3.4-5.0) Albumin/Globulin Ratio 1.2 (1.0-1.7) Lipase 121 U/L (73-393) Thyroid Stimulating Hormone (TSH) 1.500 uIU/mL (0.358-3.740) Urine Collection Type Unknown Urine Color Yellow Urine Clarity Clear Urine pH 5.0 Urine Specific [place] <=1.005 Urine Protein Neg (NEG-TRACE) Urine Glucose (UA) Neg mg/dL (NEG) Urine Ketones (Stick) Neg mg/dL (NEG) Urine Blood Trace (NEG) Urine Nitrite Neg (NEG) Urine Bilirubin Neg (NEG) Urine Urobilinogen Dipstick 0.2 mg/dL (0.2 mg/dL) Urine Leukocyte Esterase Mod (NEG) Urine RBC 0 /HPF (0-2) Urine WBC 1-4 /HPF (0-4) Urine Squamous Epithelial Cells Occ /LPF Urine Bacteria 0 /HPF (0-FEW) Test 06/29/17 05:41 White Blood Count 4.4 x10^3/uL (4.0-11.0) Red Blood Count 4.03 x10^6/uL (3.50-5.40) Hemoglobin 11.6 g/dL (12.0-15.5) Hematocrit 35.1 % (36.0-47.0) Mean Corpuscular Volume 87 fL (79-100) Mean Corpuscular Hemoglobin 29 pg (25-35) Mean Corpuscular Hemoglobin Concent 33 g/dL (31-37) Red Cell Distribution Width 14.1 % (11.5-14.5) Platelet Count 214 x10^3/uL (140-400) Neutrophils (%) (Auto) 65 % (31-73) Lymphocytes (%) (Auto) 21 % (24-48) Monocytes (%) (Auto) 9 % (0-9) Eosinophils (%) (Auto) 4 % (0-3) Basophils (%) (Auto) 1 % (0-3) Neutrophils # (Auto) 2.8 x10^3uL (1.8-7.7) Lymphocytes # (Auto) 0.9 x10^3/uL (1.0-4.8) Monocytes # (Auto) 0.4 x10^3/uL (0.0-1.1) Eosinophils # (Auto) 0.2 x10^3/uL (0.0-0.7) Basophils # (Auto) 0.1 x10^3/uL (0.0-0.2) Sodium Level 141 mmol/L (136-145) Potassium Level 4.1 mmol/L (3.5-5.1) Chloride Level 106 mmol/L (98-107) Carbon Dioxide Level 26 mmol/L (21-32) Anion Gap 9 (6-14) Blood Urea Nitrogen 11 mg/dL (7-20) Creatinine 0.9 mg/dL (0.6-1.0) Estimated GFR (Cockcroft-Gault) 60.9 Glucose Level 104 mg/dL (70-99) Calcium Level 9.1 mg/dL (8.5-10.1) Images EKG sinus rhythm, delayed R progression, no acute abn. CTA Impression: 1. No evidence for acute pulmonary embolism. 2. 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 Neck sign 3. Bibasilar subsegmental atelectasis without focal airspace consolidation. CXR IMPRESSION: No acute cardiopulmonary abnormality is detected. Assessment/Plan 1. Chest pain, atypical - MT ruled out. No acute abn on EKG. Normal LVEF and wall motion by echo. 2. mildly abnormal MPI 2014 - small anteroapical reversibility. Declined cardiac cath in rock of medical therapy at that time. 3. hypertension - controlled 4. hyperlipidemia - continue current medical therapy. Discussed possibility of repeat stress testing vs cardiac cath with patient. She prefer's to follow up outpatient and continue medical mgmt at this time. Discussed POC with Dr Patel. Ok for discharge home with follow up in office in the next 1-2 weeks. Instructed to return if reoccurrence of chest pain. Problems: CORWIN JAMES [employer] Jun 29, 2017 09:14
[2017-06-29 10:25] VITALS: BP 136/77
[2017-06-29] MEDS: ALBUTEROL SULFATE 2.5 MG/3 ML NEBU. NEB SCH (10:39)
[2017-06-29] MEDS: FLUTICASONE PROPIONATE 250 MCG IH SCH (10:45)
--- NOTE | 2017-06-29 14:10 | DS ---
DATE OF DISCHARGE: 06/29/2017 HISTORY OF PRESENT ILLNESS: The patient is a 76-year-old female patient, who came to the Emergency Room complaining of recurrent episode of left-sided chest pain that last only a couple of seconds. She has had 3 sets of cardiac enzymes, all of them were less than 0.017. She has had an echocardiogram done, which showed that her left ventricular systolic function is normal with ejection fraction of 55% to 60%. There is normal left ventricular segmental wall motion, trace aortic regurgitation, trace mitral regurgitation, mild tricuspid regurgitation and mild pulmonary hypertension with pulmonary artery pressure estimated at 35 mmHg. There is no evidence of significant pericardial effusion. The patient was seen by the Cardiology team. She apparently had a nuclear stress test done in 2014, which showed that she had small anteroapical reversibility and apparently she declined cardiac catheterization do medical therapy at that time. The patient was given the option of stress testing versus cardiac cath with patient, she prefers to follow up as an outpatient and continue medical management at this time. She will see Dr. Patel as an outpatient on 07/08/2017. PHYSICAL EXAMINATION: GENERAL: When I saw her today, she looked well and was clearly in no apparent respiratory distress, slightly pale, but no jaundice, cyanosis, or thyromegaly. No jugular venous distension. No limb edema. VITAL SIGNS: Her heart rate was 82, blood pressure was 136/77. Her temperature was 98.3, respiratory rate 20, and oxygen saturation was 98%. HEAD, EYES, EARS, NOSE AND THROAT: Showed normocephalic, atraumatic. NECK: Supple. HEART: Showed normal first and second heart sounds with no gallop, rub, or murmur. CHEST: Clear to auscultation. No crepitation or rhonchi. ABDOMEN: Distended, soft, nontender. NEUROLOGIC: She was awake, alert, responding appropriately. Cranial nerves intact. EXTREMITIES: She moves extremities without difficulty. She ambulates without assistance or assistive devices. She is still unable to lie flat completely as she had recent surgery on her right rotator cuff tear. Her intake was 1300, no output was recorded. LABORATORY DATA: As of this morning showed a serum sodium 141, potassium 4.1, chloride 106, bicarbonate 26, anion gap of 9, BUN 11, creatinine was 0.9, estimated GFR was 61 mL per minute. Her glucose 104, calcium was 9.1. Her TSH was normal at 1.5. Her white cell count was 4400, hemoglobin 11.6, hematocrit 35, MCV 87 and platelet count 214,000. Her D-dimer was high at 0.69. She did have a CT scan of the chest with the protocol, which basically showed no evidence of pulmonary emboli, mild ectasia of the ascending thoracic aorta measuring up to 3.7 cm with bibasilar subsegmental atelectasis without focal airspace consolidation. DISCHARGE MEDICATIONS: The patient will be discharged home to continue on her home medications including calcium with vitamin D 1 tablet once a day, vitamin B complex 1 tablet once a day, Protonix 40 mg once a day, Zetia 10 mg once a day, aspirin 81 mg once a day, famotidine 40 mg at bedtime, albuterol sulfate 2.5 mg by nebulizer twice a day. She is on ibuprofen mg every 6 hours, acetaminophen 650 mg every 4 hours, morphine sulfate, ondansetron 4 mg every 4 hours. FINAL DISCHARGE DIAGNOSES: 1. Atypical chest pain, myocardial infarction was ruled out. She has no acute abnormality in her EKG, normal left ventricular ejection fraction with wall motion by echocardiogram. 2. Hypertension, well controlled. 3. Hyperlipidemia, well controlled. 4. She has also chronic lower back pain, chronic peripheral neuropathy, gastroesophageal reflux disease, bronchial asthma. FLORES GUTIERREZ MD DR: RADHA/shorty JOB#: [id number] / [id number]
== END 2017-06-29 13:43 | disposition home or self-care (01) ==
LOC: ER 10:21 → 1 SOUTH 13:20 → INTOOBSV 13:20
PROVIDERS: ADMIT Internal Medicine; ATTEND Internal Medicine
DX: R07.89 Other chest pain (principal); I10 Essential (primary) hypertension; E78.5 Hyperlipidemia, unspecified; G89.29 Other chronic pain; M54.5 Low back pain; K21.9 Gastro-esophageal reflux disease without esophagitis; J45.909 Unspecified asthma, uncomplicated; F41.9 Anxiety disorder, unspecified; G62.9 Polyneuropathy, unspecified; E78.00 Pure hypercholesterolemia, unspecified; Z98.42 Cataract extraction status, left eye; Z98.41 Cataract extraction status, right eye
CPT/HCPCS: 36415; 71010; 71275; 80048; 80053; 81001; 82553; 83690; 83735; 83880; 84443; 84484; 85025; 85379; 87086; 93005; 93306; 94640; 96361; 96374; 96375; 99285; G0378; J2060; J3010; J7613; G0379; J7030

== ENCOUNTER 2017-09-17 16:25 | Emergency (ER) | payer MEDICARE, BC ==
[~2017-09-17] VITALS: Ht 165.1 cm; Wt 84.8 kg
[2017-09-17 16:25] VITALS: BP 187/78
[~2017-09-17 16:25] MED LIST changes: +ALBU1.25 NEB; +ASPI-630 PO; +CALC1TAB75 PO; +EZET10TA18 PO; +FAMO40TA4 PO; +FLUT250D IH; +IBUP400T18 PO; +PANT40TA5 PO; +VITA1CAP PO
[2017-09-17 16:58] LABS: BILIRUBIN,URINE NEG (NEG); CLARITY,URINE TURBID; COLOR,URINE YELLOW; GLUCOSE,URINE NEG (NEG); NITRITE,URINE POS (NEG); RBC,URINE 20-40 /HPF (0-2); UROBILINOGEN,URINE 0.2 mg/dL (0.2 mg/dL); WBC,URINE TNTC /HPF (0-4)
[2017-09-17 16:59] LABS: BACTERIA,URINE MANY /HPF (0-FEW); SQUAMOUS EPITHELIAL CELL,UR OCC /LPF
[2017-09-17] MEDS ORDERED: CEFD300C PO (17:32)
--- NOTE | 2017-09-17 17:33 | PHYS DOC ---
Past History Past Medical History: Asthma, GERD, High Cholesterol, UTI, Other Past Surgical History: Cholecystectomy, Lumbar Laminectomy, Tonsillectomy, Other Additional Past Surgical Histo: surgery 2, Hall's cyst behind left knee, Smoking: Non-smoker Alcohol Use: None Drug Use: None Adult General Chief Complaint Chief Complaint: URINARY FREQUENCY HPI HPI Patient is a 77 year old F who presents with her and her frequency, dysuria and urgency. States that she's had these symptoms over the past several days and has had frequent urinary tract infections. She feels that these symptoms are similar to her previous urinary tract infections. She denies other associated symptoms. She denies exacerbating or relieving factors. Review of Systems Review of Systems Constitutional: Denies fever or chills [] Eyes: Denies change in visual acuity, redness, or eye pain [] HENT: Denies nasal congestion or sore throat [] Respiratory: Denies cough or shortness of breath [] Cardiovascular: No additional information not addressed in HPI [] GI: Denies abdominal pain, nausea, vomiting, bloody stools or diarrhea [] : Negative except history of present illness Musculoskeletal: Denies back pain or joint pain [] Integument: Denies rash or skin lesions [] Neurologic: Denies headache, focal weakness or sensory changes [] Endocrine: Denies polyuria or polydipsia [] All other systems were reviewed and found to be within normal limits, except as documented in this note. Family History Family History No pertinent medical history was reported Current Medications Current Medications Current medications were reviewed Allergies Allergies Allergies Coded Allergies Type Severity Reaction Last Updated Verified Sulfa (Sulfonamide Antibiotics) Allergy Severe HIVES 06/28/17 Yes acetaminophen Allergy Severe DISORIENTED, VOMITING VIOLENT 06/28/17 Yes ciprofloxacin Allergy Severe HIVES 06/28/17 Yes oxycodone Allergy Severe DISORIENTED, VOMITING VIOLENT 06/28/17 Yes simvastatin Adverse Reaction Severe 06/25/14 Yes codeine Adverse Reaction Intermediate 06/25/14 Yes fluvastatin Adverse Reaction Intermediate 06/25/14 Yes tramadol Adverse Reaction Intermediate 06/25/14 Yes Physical Exam Physical Exam Constitutional: Well developed, well nourished, no acute distress, non-toxic appearance. [] HENT: Normocephalic, atraumatic, Eyes: PERRLA, EOMI, conjunctiva normal, no discharge. [] Neck: Normal range of motion, no tenderness, supple, no stridor. [] Cardiovascular:Heart rate regular rhythm, Lungs & Thorax: Bilateral breath sounds clear to auscultation [] Abdomen: Bowel sounds normal, soft, no masses, no pulsatile masses. [] Mild suprapubic tenderness Skin: Warm, dry, no erythema, no rash. [] Extremities: No tenderness, no cyanosis, no clubbing, ROM intact, no edema. [] Neurologic: Alert and oriented X 3, normal motor function, normal sensory function, no focal deficits noted. [] Psychologic: Affect normal, judgement normal, mood normal. [] Current Patient Data Vital Signs Vital Signs Date Time Temp Pulse Resp B/P (MAP) Pulse Ox O2 Delivery O2 Flow Rate FiO2 09/17/17 16:25 98.5 78 16 97 Room Air Lab Results Laboratory Tests Test 09/17/17 16:35 Urine Collection Type Unknown Urine Color Yellow Urine Clarity Turbid Urine pH 5.5 Urine Specific [place] 1.020 Urine Protein >100 mg/dl (NEG-TRACE) Urine Glucose (UA) Neg mg/dL (NEG) Urine Ketones (Stick) Neg mg/dL (NEG) Urine Blood Large (NEG) Urine Nitrite Pos (NEG) Urine Bilirubin Neg (NEG) Urine Urobilinogen Dipstick 0.2 mg/dL (0.2 mg/dL) Urine Leukocyte Esterase Large (NEG) Urine RBC 20-40 /HPF (0-2) Urine WBC Tntc /HPF (0-4) Urine Squamous Epithelial Cells Occ /LPF Urine Bacteria Many /HPF (0-FEW) EKG EKG [] Radiology/Procedures Radiology/Procedures [] Course & Med Decision Making Course & Med Decision Making Pertinent Labs and Imaging studies reviewed. (See chart for details) [] Dragon Disclaimer Dragon Disclaimer This electronic medical record was generated, in whole or in part, using a voice recognition dictation system. Departure Departure: Impression: Primary Impression: UTI (urinary tract infection) Disposition: 01 HOME, SELF-CARE Condition: STABLE Referrals: MOHSEN MCLAIN (PCP) Patient Instructions: Urinary Tract Infection Additional Instructions: Clarissa was seen in the emergency department for urinary frequency. No emergency medical condition was found on history or physical exam. She was found to have laboratory findings and symptoms most consistent with a urinary tract infection. She was given a prescription for antibiotics. She is advised follow- up with her primary care doctor as needed for further management. Scripts Cefdinir (CEFDINIR) 300 Mg Capsule 1 CAP PO BID for 7 Days, #14 CAP Prov: MARCEL ARAUJO MD 09/17/17 Problem Qualifiers Primary Impression: UTI (urinary tract infection) Urinary tract infection type: site unspecified Hematuria presence: with hematuria Qualified Codes: N39.0 - Urinary tract infection, site not specified ; R31.9 - Hematuria, unspecified MARCEL ARAUJO MD Sep 17, 2017 17:33
== END 2017-09-17 17:53 | disposition home or self-care (01) ==
LOC: ER 16:25
DX: N39.0 Urinary tract infection, site not specified (principal); Z87.440 Personal history of urinary (tract) infections; J45.909 Unspecified asthma, uncomplicated; K21.9 Gastro-esophageal reflux disease without esophagitis; E78.00 Pure hypercholesterolemia, unspecified; Z88.2 Allergy status to sulfonamides; Z88.1 Allergy status to other antibiotic agents; Z88.6 Allergy status to analgesic agent; Z88.5 Allergy status to narcotic agent; Z88.8 Allergy status to other drugs, medicaments and biological substances
CPT/HCPCS: 81001; 87086; 87186; 99284

== ENCOUNTER → 2018-08-11 | Outpatient (CLI) | payer MEDICARE, BC ==
[~2018-08-11] MED LIST changes: +CEFD300C PO
--- NOTE | 2018-08-11 16:50 | RAD ---
Left foot, 2 views, 08/11/2018: HISTORY: Foot pain and swelling No fracture or dislocation is identified. There are mild scattered degenerative changes. IMPRESSION: No acute bony abnormality is detected. Electronically signed by: Suraj Patrick MD (08/11/2018 4:46 PM) [facility]
== END | disposition home or self-care (01) ==
LOC: PMG 10:10
PROVIDERS: ATTEND Physician Assistant
DX: M19.072 Primary osteoarthritis, left ankle and foot (principal)
CPT/HCPCS: 73620

== ENCOUNTER → 2018-12-08 | Outpatient (CLI) | payer MEDICARE, BC | END | disposition home or self-care (01) | LOC: SURG 09:33 | PROVIDERS: ATTEND Anesthesiology Pain Medicine | DX: M47.812 Spondylosis without myelopathy or radiculopathy, cervical region (principal); M25.512 Pain in left shoulder | CPT/HCPCS: 99214 ==

== ENCOUNTER → 2020-01-17 | Outpatient (CLI) | payer MEDICARE, BC ==
[~2020-01-17] MED LIST changes: -EZET10TA18 PO; +EZET10TA20 PO; -IBUP-1227 PO; +IBUP-1673 PO
--- NOTE | 2020-01-17 10:55 | RAD ---
PQRS Compliance Statement: One or more of the following individualized dose reduction techniques were utilized for this examination: 1. Automated exposure control 2. Adjustment of the mA and/or kV according to patient size 3. Use of iterative reconstruction technique CT maxillofacial without contrast 01/17/2020 INDICATION: Chronic sinusitis with facial pain. COMPARISON: None available. TECHNIQUE: Multiple axial CT images of the maxilla facial structures were obtained without intravenous contrast. Coronal and sagittal reformats are provided. FINDINGS: Orbits are normal in appearance with exception of bilateral lens replacement. Globes are spherical and contour. Extraocular muscles are intact. No intraconal or extraconal masses are identified. The maxillary sinuses, ethmoid air cells and frontal sinuses are well aerated. Sphenoid sinuses demonstrate mild mucosal thickening posteriorly. Ostiomeatal units are widely patent. Nasal septum is predominantly midline. There is tara bullosa on the left. No osseous erosion is identified. Skull base is intact. Mild left TMJ arthropathy. No suspicious soft tissue abnormality. IMPRESSION: 1. Mild mucosal thickening involving the posterior sphenoid sinuses. 2. Ostiomeatal units are widely patent. Electronically signed by: La Rodrigues MD (01/17/2020 10:52 AM) [id number]
== END ==
LOC: CT 09:50
PROVIDERS: ATTEND Physician Assistant
DX: M89.38 Hypertrophy of bone, other site (principal); R51 Headache; J32.9 Chronic sinusitis, unspecified
CPT/HCPCS: 70486

== ENCOUNTER → 2020-04-07 | Outpatient (CLI) | payer MEDICARE, BC ==
--- NOTE | 2020-04-07 08:42 | RAD ---
PROCEDURE: FINGER(S) LEFT STUDY DATE: 04/07/2020 CLINICAL INDICATION / HISTORY: Fifth digit pain and injury.. TECHNIQUE: Right fifth finger - 2 views COMPARISON: None FINDINGS: Subtle oblique lucency through the shaft of the proximal fifth phalanx is present with sclerotic margin best seen on the AP view is suggestive of an old, nearly fully healed mid shaft fifth proximal phalangeal fracture. No new fractures seen. Soft tissues are unremarkable. IMPRESSION: Right fifth finger. Evidence of an old, nearly completely healed proximal phalangeal fracture without displacement. If fibrous nonunion is suspected, MRI could be pursued in further evaluation. PROCEDURE: FOOT RIGHT 3V, FINGER(S) LEFT STUDY DATE: 04/07/2020 CLINICAL INDICATION / HISTORY: Reason: INJURY TO RIGHT FOOT, BRUISING AND SWELLING / Spl. Instructions: / History: . TECHNIQUE: AP, lateral and oblique views of the right foot. COMPARISON: None FINDINGS: No fracture or dislocation is identified. Mild degenerative change of the first MTP joint. The bone density is normal. The joint space widths are otherwise maintained, and there are no erosions to suggest an inflammatory arthropathy. No soft tissue abnormality is seen. IMPRESSION: No acute osseous abnormality. Electronically signed by: Eddie Forrester MD (04/07/2020 8:39 AM) [id number]
== END | disposition home or self-care (01) ==
LOC: PMG 07:56
PROVIDERS: ATTEND Physician Assistant Medical
DX: S99.921D Unspecified injury of right foot, subsequent encounter (principal); S69.92XD Unspecified injury of left wrist, hand and finger(s), subsequent encounter; X58.XXXD Exposure to other specified factors, subsequent encounter; M19.071 Primary osteoarthritis, right ankle and foot
CPT/HCPCS: 73140; 73630

== ENCOUNTER → 2020-04-14 | Outpatient (CLI) | payer MEDICARE, BC ==
--- NOTE | 2020-04-14 08:28 | RAD ---
TIBIA FIBULA RIGHT Clinical Indication: Reason: fall x weeks ago and now cellulitis in distal tib/fib / Spl. Instructions: / History: Comparison: None. Findings: No acute fracture of the tibia or fibula is seen. The ankle mortise is intact. No soft tissue swelling of the calf. No radiopaque foreign body. Tiny bone fragment at the medial tibial plateau may be nonacute reverse Segond fracture. Tricompartmental marginal osteophytes of the knee. There is some degree of joint space narrowing, incompletely evaluated. There is no knee joint effusion. IMPRESSION: 1. No acute fracture. 2. Suspect nonacute reverse Segond fracture. Electronically signed by: Yovanny Licona MD (04/14/2020 8:24 AM) [id number]
== END | disposition home or self-care (01) ==
LOC: PMG 07:51
PROVIDERS: ATTEND Physician Assistant Medical
DX: L03.115 Cellulitis of right lower limb (principal); M25.761 Osteophyte, right knee
CPT/HCPCS: 73590

== ENCOUNTER → 2020-07-04 | Outpatient (CLI) | payer MEDICARE, BC ==
[~2020-07-04] MED LIST changes: +CALC-628 PO; -CALC1TAB75 PO; -PANT40TA5 PO; +PANT40TA6 PO
--- NOTE | 2020-07-04 14:23 | RAD ---
Three views Left finger: Clinical History: Reason: CLOSED FX OF PROXIMAL PHALANX OF 5TH FINGER OF LEFT HAND / Spl. Instructions: / History: . Technique: AP view of the hand, as well as lateral and oblique collimated views of the little finger were obtained. Comparison: None. Findings: There is an oblique fracture through the proximal phalanx of little finger. There is minimal impaction and mild medial distraction and minimal posterior angulation. Remaining visualized osseous structures appear normal. Impression: Acute traumatic fracture of the proximal phalanx of the little finger. Electronically signed by: Len Traore III, MD (07/04/2020 2:20 PM) ASHA
== END ==
LOC: DXRAD 10:48
PROVIDERS: ATTEND Physician Assistant
DX: S62.619A Displaced fracture of proximal phalanx of unspecified finger, initial encounter for closed fracture (principal); X58.XXXA Exposure to other specified factors, initial encounter; Y93.89 Activity, other specified; Y92.89 Other specified places as the place of occurrence of the external cause; Y99.8 Other external cause status
CPT/HCPCS: 73140

== ENCOUNTER 2020-11-29 03:35 | Emergency (ER) | payer MEDICARE, BC ==
[~2020-11-29] VITALS: Ht 165.1 cm; Wt 90.0 kg
[2020-11-29] MEDS ORDERED: ASPIRIN CHEWABLE 81 MG TABLET. ONE (03:40)
--- NOTE | 2020-11-29 03:55 | PHYS DOC ---
Past History Past Medical History: Asthma, GERD, High Cholesterol, UTI, Other Past Surgical History: Cholecystectomy, Lumbar Laminectomy, Tonsillectomy, Other Additional Past Surgical Histo: surgery 2, Hall's cyst behind left knee, Smoking: Non-smoker Alcohol Use: None Drug Use: None Adult General Chief Complaint Chief Complaint: MECHANICAL FALL HPI HPI Patient is a 80yo female presenting with for fall. This was suffered while ambulating from bed to upright chair which she typically sleeps at night. She reports it was dark and she tripped over something on ground prompting her to fall forwards hitting left temporal region of head on wooden door. She was able to catch herself before hitting ground (carpet), no LOC, she is not on any blood thinners. She has a small "bump" on left side of head which concerned her prompting to come in for evaluation. Pain is controlled, no vision changes, dizziness, cp, shob, neuro deficits noted. Review of Systems Review of Systems Fourteen body systems of review of systems have been reviewed. See HPI for pertinent positives and negative responses, other nails all other systems are negative, non-pertinent or non-contributory Current Medications Current Medications Current Medications Medications (Trade) Dose Ordered Sig/Hetal Start Time Stop Time Status Last Admin Dose Admin Aspirin (Aspirin Chewable) 81 mg STK-MED ONCE 11/29/20 03:40 11/29/20 03:40 DC Allergies Allergies Allergies Coded Allergies Type Severity Reaction Last Updated Verified Sulfa (Sulfonamide Antibiotics) Allergy Severe HIVES 06/28/17 Yes acetaminophen Allergy Severe DISORIENTED, VOMITING VIOLENT 06/28/17 Yes ciprofloxacin Allergy Severe HIVES 06/28/17 Yes oxycodone Allergy Severe DISORIENTED, VOMITING VIOLENT 06/28/17 Yes simvastatin Adverse Reaction Severe 06/25/14 Yes codeine Adverse Reaction Intermediate 06/25/14 Yes fluvastatin Adverse Reaction Intermediate 06/25/14 Yes tramadol Adverse Reaction Intermediate 06/25/14 Yes Physical Exam Physical Exam Constitutional: Pt is oriented to person, place, and time. Pt appears well-developed and well-nourished. HEENT: Head: Normocephalic, mild hematoma noted to left temporal region ~1x2cm without crepitus or depression noted TMs clear, no hemotympanum Conjunctivae and EOM are normal. Pupils are equal, round, and reactive to light. Oropharynx is clear and moist. No hematomas or lacerations or abrasions to face or scalp OP clear, no blood, no malocclusion, dentition intact Nares clear, no nasal septal hematoma Midface stable Neck: C-spine midline nontender, no step-offs Cardiovascular: Normal rate, regular rhythm and normal heart sounds. Pulmonary/Chest: Effort normal and breath sounds normal. No respiratory distress. No wheezes. CTA bilaterally Abdominal: Soft. Bowel sounds are normal. Pt exhibits no distension. There is no tenderness. Musculoskeletal: No bony tenderness to extremities, no deformities, full ROM extremities Chest wall stable Pelvis stable and non-tender No vertebral TTP and spine without stepoffs Neurological: Pt is alert and oriented to person, place, and time. Moving all extremities willfully, able to wiggle all fingers and toes Alert and oriented x 3 Sensation and motor intact CN 2-12 intact Skin: Skin is warm and dry. No abrasions, no lacerations Psychiatric: Behavior is appropriate for situation Current Patient Data Vital Signs Vital Signs Date Time Temp Pulse Resp B/P (MAP) Pulse Ox O2 Delivery O2 Flow Rate FiO2 11/29/20 03:40 97.9 85 22 187/78 (114) 97 Room Air Vital Signs Date Time Temp Pulse Resp B/P (MAP) Pulse Ox O2 Delivery O2 Flow Rate FiO2 11/29/20 04:30 78 20 145/80 (101) 97 Room Air 11/29/20 03:40 97.9 EKG EKG [] Radiology/Procedures Radiology/Procedures PROCEDURE: CT HEAD WO CONTRAST CT head without contrast PQRS statement: CT scans at this facility use dose reduction including either automated exposure control, iterative reconstructions, and /or weight based radiation dosing via mA and kV modification when appropriate to reduce radiation dose to as low as reasonably achievable. HISTORY: Fell and hit left temporal region of the head. FINDINGS: Mild generalized brain atrophy. Cerebral periventricular white matter hypoattenuation likely changes of chronic small vessel ischemic white matter disease. No intracranial hemorrhage, mass, hydrocephalus or infarction. Left parietal scalp soft tissue swelling. Orbits, mastoids and bones are unremarkable. IMPRESSION: No acute intracranial abnormality. Mild left parietal scalp soft tissue swelling. No skull fracture. Electronically signed by: Imtiaz Macias MD (11/29/2020 4:24 AM) [id number] Heart Score C/O Chest Pain: No Risk Factors: Risk Factors: DM, Current or recent (<one month) smoker, HTN, HLP, family history of CAD, obesity. Risk Scores: Risk Factors: DM, Current or recent (<one month) smoker, HTN, HLP, family history of CAD, obesity. Course & Med Decision Making Course & Med Decision Making Hemodynamically stable with HPI and PE consistent for ground level fall into door CT imaging negative, no indication for further workup Discussed need for close observation at home and PCP follow up this upcoming week. I disclosed this might be an acute presenting of more concerning pathology such as brain bleed so strict return precautions discussed All questions and concerns addressed prior to departure Dragon Disclaimer Dragon Disclaimer This electronic medical record was generated, in whole or in part, using a voice recognition dictation system. Departure Departure: Impression: Primary Impression: Closed head injury Additional Impression: Fall Disposition: 01 DC HOME SELF CARE/HOMELESS Condition: STABLE Referrals: MOHSEN MCLAIN (PCP) Patient Instructions: Head Injury, Adult Additional Instructions: You were seen for close head injury after a fall. Your physical exam and imaging was normal. Please continue to take home pain medication as needed. You can also utilize Tylenol for as needed pain. Read and follow the attached head injury instructions and return as instructed. Return to the Urgent Care or Emergency Room if you have more than 2 episodes of vomiting, passes out, exp eriences a seizure, seems excessively sleepy, is having trouble talking/walking, isnt acting right, or if you have any other concerns. I advise you to call your primary care physician first thing Tuesday morning to discuss fall and determine need for outpatient follow-up this upcoming week for repeat evaluation. It was a pleasure to take care of you and I wish you a speedy recovery Problem Qualifiers DARCI ABEBE DO Nov 29, 2020 03:55
[2020-11-29] MEDS ORDERED: ACETAMINOPHEN 500 MG TABLET PO ONE (04:15)
--- NOTE | 2020-11-29 04:26 | RAD ---
CT head without contrast PQRS statement: CT scans at this facility use dose reduction including either automated exposure cont rol, iterative reconstructions, and /or weight based radiation dosing via mA and kV modification when appropriate to reduce radiation dose to as low as reasonably achievable. HISTORY: Fell and hit left temporal region of the head. FINDINGS: Mild generalized brain atrophy. Cerebral periventricular white matter hypoattenuation likel y changes of chronic small vessel ischemic white matter disease. No intracranial hemorrhage, mass, hy drocephalus or infarction. Left parietal scalp soft tissue swelling. Orbits, mastoids and bones are u nremarkable. IMPRESSION: No acute intracranial abnormality. Mild left parietal scalp soft tissue swelling. No skul l fracture. Electronically signed by: Imtiaz Macias MD (11/29/2020 4:24 AM) [facility]
[2020-11-29 04:30] VITALS: BP 145/80
== END 2020-11-29 04:50 | disposition home or self-care (01) ==
LOC: ER 03:35
DX: S09.8XXA Other specified injuries of head, initial encounter (principal); J45.909 Unspecified asthma, uncomplicated; K21.9 Gastro-esophageal reflux disease without esophagitis; E78.00 Pure hypercholesterolemia, unspecified; Z90.49 Acquired absence of other specified parts of digestive tract; Z90.89 Acquired absence of other organs; Z98.890 Other specified postprocedural states; Z88.2 Allergy status to sulfonamides; Z88.5 Allergy status to narcotic agent; Z88.1 Allergy status to other antibiotic agents; Z88.8 Allergy status to other drugs, medicaments and biological substances; W01.0XXA Fall on same level from slipping, tripping and stumbling without subsequent striking against object, initial encounter; Y93.89 Activity, other specified; Y92.89 Other specified places as the place of occurrence of the external cause; Y99.8 Other external cause status
CPT/HCPCS: 70450; 99284

== ENCOUNTER 2021-02-15 21:01 | Emergency (ER) | payer MEDICARE, BC ==
[~2021-02-15] VITALS: Ht 165.1 cm; Wt 90.0 kg
--- NOTE | 2021-02-15 22:58 | RAD ---
Exam: Right knee 3 views INDICATION: Fall, pelvic, bilateral hip and right knee pain TECHNIQUE: Frontal, lateral and oblique views of the right knee Comparisons: None FINDINGS: Mild osteopenia. No acute or healed fractures. Soft tissues are unremarkable. Moderate tricompartment al osteoarthritic change at the right knee. IMPRESSION: No acute osseous abnormality at the right knee. Electronically signed by: Cheko Baird MD (02/15/2021 10:56 PM) [facility]
--- NOTE | 2021-02-15 23:00 | RAD ---
Exam: Pelvis with bilateral hips 2 views INDICATION: Fall, pelvic pain TECHNIQUE: Frontal view of the pelvis with frontal and frog-leg lateral views of the bilateral hips Comparisons: None FINDINGS: There is a mildly displaced skull transcervical fracture of the right femoral neck. Diffuse osteopeni a. Soft tissues are unremarkable. Joint spaces are well-maintained. IMPRESSION: Mildly displaced transcervical fracture of the right femoral neck. Electronically signed by: Cheko Baird MD (02/15/2021 10:57 PM) [facility]
--- NOTE | 2021-02-15 23:01 | RAD ---
Exam: Right femur 2 views INDICATION: Fall, hip pain TECHNIQUE: Frontal, lateral views of the right femur Comparisons: None FINDINGS: Redemonstration of a transcervical fracture at the right femoral neck. Diffuse osteopenia. Soft tissu es are unremarkable. Joint spaces are well-maintained. IMPRESSION: Transcervical fracture at the right femoral neck. Electronically signed by: Cheko Baird MD (02/15/2021 10:58 PM) [facility]
--- NOTE | 2021-02-15 23:11 | PHYS DOC ---
Past History Past Medical History: Arthritis, Asthma, GERD, High Cholesterol, UTI Past Surgical History: Cholecystectomy, Lumbar Laminectomy, Tonsillectomy, Other Additional Past Surgical Histo: shoulder surg x2, Hall's cyst behind left knee,cataract, back, bladder lif Smoking: Non-smoker Alcohol Use: None Drug Use: None Adult General Chief Complaint Chief Complaint: MECHANICAL FALL HPI HPI Patient is an 80-year-old female who presents after a trip and fall at home. States she tripped and fell onto her right side, and has right-sided hip pain, 8 out of 10, sharp in nature and severe pain when trying to move it. Denies any other injuries. Review of Systems Review of Systems Review of systems otherwise unremarkable except noted in HPI Current Medications Current Medications Current Medications Medications (Trade) Dose Ordered Sig/Hetal Start Time Stop Time Status Last Admin Dose Admin Fentanyl Citrate (Fentanyl 2ml Vial) 50 mcg 1X ONCE 02/15/21 21:45 02/15/21 21:46 DC 02/15/21 21:45 50 MCG Allergies Allergies Allergies Coded Allergies Type Severity Reaction Last Updated Verified Sulfa (Sulfonamide Antibiotics) Allergy Severe HIVES 06/28/17 Yes ciprofloxacin Allergy Severe HIVES 06/28/17 Yes oxycodone Adverse Reaction Severe DISORIENTED, VOMITING VIOLENT 02/15/21 Yes simvastatin Adverse Reaction Severe 06/25/14 Yes codeine Adverse Reaction Intermediate 06/25/14 Yes fluvastatin Adverse Reaction Intermediate 06/25/14 Yes tramadol Adverse Reaction Intermediate 06/25/14 Yes Physical Exam Physical Exam Constitutional: Well developed, well nourished, no acute distress, non-toxic appearance. [] HENT: Normocephalic, atraumatic, Eyes: conjunctiva normal, no discharge. [] Neck: Normal range of motion, no tenderness, Cardiovascular:Heart rate regular rhythm, no murmur [] Lungs & Thorax: Bilateral breath sounds clear to auscultation [] Abdomen: soft, no tenderness, no masses, no pulsatile masses. [] Skin: Warm, dry, no erythema, no rash. [] Back: No tenderness, no CVA tenderness. [] Extremities: Right leg appears externally rotated and slightly shortened with pain at the hip with both passive and active movement. Neurovascular exam intact. Neurologic: Alert and oriented X 3, nno focal deficits noted. [] Psychologic: Affect normal, judgement normal, mood normal. [] Current Patient Data Vital Signs Vital Signs Date Time Temp Pulse Resp B/P (MAP) Pulse Ox O2 Delivery O2 Flow Rate FiO2 02/15/21 21:45 18 98 Room Air 02/15/21 21:03 98.1 77 161/75 (103) EKG EKG [] Radiology/Procedures Radiology/Procedures [] Exam: Pelvis with bilateral hips 2 views INDICATION: Fall, pelvic pain TECHNIQUE: Frontal view of the pelvis with frontal and frog-leg lateral views of the bilateral hips Comparisons: None FINDINGS: There is a mildly displaced skull transcervical fracture of the right femoral neck. Diffuse osteopenia. Soft tissues are unremarkable. Joint spaces are well- maintained. IMPRESSION: Mildly displaced transcervical fracture of the right femoral neck. Electronically signed by: Cheko Baird MD (02/15/2021 10:57 PM) [facility] Heart Score C/O Chest Pain: No Risk Factors: Risk Factors: DM, Current or recent (<one month) smoker, HTN, HLP, family history of CAD, obesity. Risk Scores: Risk Factors: DM, Current or recent (<one month) smoker, HTN, HLP, family history of CAD, obesity. Course & Med Decision Making Course & Med Decision Making Patient is a 80-year-old female who presents with right hip pain after a fall Vital signs not concerning. Physical exam noted above. Given fentanyl for pain. Imaging notable for mildly displaced transcervical fracture of the right femoral neck. Discussed all findings with family and recommended transfer and admission to [place] for continued evaluation and treatment by orthopedic services. Family grateful, verbalized understanding and agreed with plan of transfer and admission. [] Dragon Disclaimer Dragon Disclaimer This electronic medical record was generated, in whole or in part, using a voice recognition dictation system. Departure Departure: Impression: Primary Impression: Femoral neck fracture Disposition: 02 SHORT TERM HOSPITAL Condition: IMPROVED Referrals: MOHSEN MCLAIN (PCP) SHAMEKA AGUAYO MD Feb 15, 2021 23:11
[2021-02-15 23:36] LABS: BASO # 0.1 x10^3/uL (0.0-0.2); BASO % 1 % (0-3); EOS # 0.5 x10^3/uL (0.0-0.7); EOS % 7 % (0-3); HEMATOCRIT 35.4 % (36.0-47.0); HEMOGLOBIN 11.7 g/dL (12.0-15.5); LYMPH # 1.4 x10^3/uL (1.0-4.8); LYMPH % 19 % (24-48); MEAN CORPUSCULAR HEMOGLOBIN 29 pg (25-35); MEAN CORPUSCULAR HGB CONC 33 g/dL (31-37); MEAN CORPUSCULAR VOLUME 88 fL (79-100); MONO # 0.7 x10^3/uL (0.0-1.1); MONO % 9 % (0-9); NEUT # 4.7 x10^3uL (1.8-7.7); NEUT % 64 % (31-73); PLATELET COUNT 309 x10^3/uL (140-400); RED BLOOD COUNT 4.01 x10^6/uL (3.50-5.40); RED CELL DISTRIBUTION WIDTH 14.2 % (11.5-14.5); WHITE BLOOD COUNT 7.3 x10^3/uL (4.0-11.0)
[2021-02-16 00:15] LABS: CALCIUM 9.2 mg/dL (8.5-10.1); CREATININE 1.2 mg/dL (0.6-1.0); GFR 43.2; POTASSIUM 4.3 mmol/L (3.5-5.1)
[2021-02-16 03:15] VITALS: BP 145/7
== END 2021-02-16 03:18 | disposition short-term general hospital (02) ==
LOC: ER 21:01
DX: S72.001A Fracture of unspecified part of neck of right femur, initial encounter for closed fracture (principal); J45.909 Unspecified asthma, uncomplicated; K21.9 Gastro-esophageal reflux disease without esophagitis; E78.5 Hyperlipidemia, unspecified; Z90.49 Acquired absence of other specified parts of digestive tract; W01.0XXA Fall on same level from slipping, tripping and stumbling without subsequent striking against object, initial encounter; Y93.89 Activity, other specified; Y92.89 Other specified places as the place of occurrence of the external cause; Y99.8 Other external cause status
CPT/HCPCS: 36415; 73521; 73552; 73562; 80048; 85025; 96372; 96374; 96376; 99284; J3010

== ENCOUNTER → 2021-03-26 | Outpatient (CLI) | payer MEDICARE, BC ==
--- NOTE | 2021-03-26 16:06 | RAD ---
INDICATION: Screening for osteopenia/osteoporosis. Reason: CLOSED FRACTURE R HIP / Spl. Instructions : / History: COMPARISON: None. TECHNIQUE: Bone densitometry was performed through the lumbar spine and proximal femur. IMPRESSION: Lumbar Spine: BMD: 0.99 T-Score: -1.4 Range: Osteopenic Proximal Femur: BMD: 0.94 T-Score: -0.2 Range: Normal World Health Organization Criteria for Bone Density: T-Score: > -1.0: Normal Range < -1.0 to -2.5: Osteopenic Range < -2.5: Osteoporotic Range Electronically signed by: Dwight Chamorro MD (03/26/2021 4:03 PM) [id number]
== END ==
LOC: DXRAD 13:44
PROVIDERS: ATTEND Physician Assistant
DX: S72.001S Fracture of unspecified part of neck of right femur, sequela (principal); M85.88 Other specified disorders of bone density and structure, other site; X58.XXXS Exposure to other specified factors, sequela
CPT/HCPCS: 77080

== ENCOUNTER → 2021-08-21 | Outpatient (CLI) | payer MEDICARE, BC ==
[~2021-08-21] MED LIST changes: -FLUT250D IH; +FLUT250D2 IH
--- NOTE | 2021-08-21 15:46 | RAD ---
Site ID: [id number] EXAMINATION: XR KNEE_AP BILAT STANDING, XR KNEE_LT 1-2 VIEWS. HISTORY: 81 years Female Reason: LEFT KNEE PAIN / Spl. Instructions: / History: . COMPARISON: March 17 2021. FINDINGS: No fracture, dislocation or radiopaque foreign body. Standing views demonstrate significant joint s pace narrowing in the medial compartment bilaterally and joint space narrowing of mild degree in the lateral compartment on the catheter left side. The knee alignment is satisfactory. Marginal osteophyt es are from a seen. In the right knee there is chondrocalcinosis noted. No suprapatellar effusion. IMPRESSION: Moderate to advanced degenerative changes. Chondrocalcinosis in the right knee. Electronically signed by: Clarence Segundo MD (08/21/2021 3:44 PM) [id number]
== END ==
LOC: RAD 09:28
PROVIDERS: ATTEND Physician Assistant
DX: M17.11 Unilateral primary osteoarthritis, right knee (principal); M11.261 Other chondrocalcinosis, right knee; M25.762 Osteophyte, left knee; M25.761 Osteophyte, right knee
CPT/HCPCS: 73560; 73565

== ENCOUNTER 2022-01-30 18:00 | Emergency (ER) | payer MEDICARE, BC ==
[~2022-01-30] VITALS: Ht 165.1 cm; Wt 90.0 kg
--- NOTE | 2022-01-30 18:52 | PHYS DOC ---
Past History Past Medical History: Arthritis, Asthma, GERD, High Cholesterol, UTI Past Surgical History: Cholecystectomy, Lumbar Laminectomy, Tonsillectomy, Other Additional Past Surgical Histo: shoulder surg x2, Hall's cyst behind left knee,cataract, back, bladder lif Smoking: Non-smoker Alcohol Use: None Drug Use: None Adult General Chief Complaint Chief Complaint: SYNCOPE HPI HPI Patient is a 81-year-old female with a past medical history significant for some degree of dementia per family, hypertension and GERD who presents with a chief complaint of lightheadedness feeling like she was going to pass out. Per patient and daughter, patient's was admitted to the hospital yesterday and they have been busy and had a lot of stress. States that when they got back from the hospital she was getting out of the car in the driveway and got lightheaded and went down slowly to her knees but did not pass out completely or hit the ground. States that her daughter came around, helped her up. Daughter thinks that she had not really had much to eat or drink over the last couple of days. Denies headache, changes in vision, neck pain, chest pain, shortness of breath, abdominal pain, nausea, vomiting, diarrhea. Denies any new numbness/weakness/tingling. Denies any confusion or facial droop. Daughter thinks mom is at baseline mentation and is able to ambulate at baseline. Review of Systems Review of Systems Review of systems otherwise unremarkable except noted in HPI Allergies Allergies Allergies Coded Allergies Type Severity Reaction Last Updated Verified Sulfa (Sulfonamide Antibiotics) Allergy Severe HIVES 01/30/22 Yes ciprofloxacin Allergy Severe HIVES 06/28/17 Yes oxycodone Adverse Reaction Severe DISORIENTED, VOMITING VIOLENT 02/15/21 Yes simvastatin Adverse Reaction Severe 06/25/14 Yes codeine Adverse Reaction Intermediate 06/25/14 Yes fluvastatin Adverse Reaction Intermediate 06/25/14 Yes tramadol Adverse Reaction Intermediate 06/25/14 Yes Physical Exam Physical Exam Constitutional: Well developed, well nourished, no acute distress, non-toxic appearance. [] HENT: Normocephalic, atraumatic, bilateral external ears normal, oropharynx moist, no oral exudates, nose normal. [] Eyes: PERRLA, EOMI, conjunctiva normal, no discharge. [] Neck: Normal range of motion, no tenderness, supple, no stridor. [] Cardiovascular:Heart rate regular rhythm, no murmur [] Lungs & Thorax: Bilateral breath sounds clear to auscultation [] Abdomen: soft, no tenderness, no masses, no pulsatile masses. [] Skin: Warm, dry, no erythema, no rash. [] Back: No tenderness, no CVA tenderness. [] Extremities: No tenderness, no cyanosis, no clubbing, ROM intact, no edema. [] Neurologic: Alert and oriented at baseline, normal motor function, normal sensory function, able to sit, stand and walk at baseline, no focal deficits noted. [] Psychologic: Affect normal, judgement normal, mood normal. [] Current Patient Data Vital Signs Vital Signs Date Time Temp Pulse Resp B/P (MAP) Pulse Ox O2 Delivery O2 Flow Rate FiO2 01/30/22 18:15 98.2 76 18 148/64 (92) 97 Room Air EKG EKG [] Radiology/Procedures Radiology/Procedures [] Heart Score C/O Chest Pain: No Risk Factors: Risk Factors: DM, Current or recent (<one month) smoker, HTN, HLP, family history of CAD, obesity. Risk Scores: Risk Factors: DM, Current or recent (<one month) smoker, HTN, HLP, family history of CAD, obesity. Course & Med Decision Making Course & Med Decision Making Patient is an 81-year-old female who presents after a syncopal episode in her driveway Vital signs nonconcerning. Physical exam noted above. IV placed with IV fluid resuscitation begun EKG with a rate of 70, QRS of 82, QTc 421, no STEMI. Troponin normal. Laboratory analysis notable for essentially baseline anemia and elevation of creatinine from last visit from 1.2-1.9. Patient has urinary tract infection as well, nitrite and leukocyte esterase positive. Discussed all findings with family and offered admission for continued IV fluid resuscitation, and antibiotics. Patient stated that she felt well and prefer to just go home and take her antibiotics and drink fluids because they have things to do this weekend and she would follow-up with her primary care physician next week. Given dose of Rocephin in the ED and a liter of LR. Discussed nutrition and hydration at home over the next couple of days. Advised to follow-up with primary care physician next week. Patient and family verbalized understanding and agreed with plan of discharge. Dragon Disclaimer Dragon Disclaimer This electronic medical record was generated, in whole or in part, using a voice recognition dictation system. Departure Departure: Impression: Primary Impression: UTI (urinary tract infection) Additional Impression: Lightheaded Disposition: 01 HOME / SELF CARE / HOMELESS Condition: STABLE Referrals: MOHSEN MCLAIN (PCP) Patient Instructions: Dizziness, Urinary Tract Infection Additional Instructions: Thank you for coming into the emergency department tonight and allowing us to t bhupinder care of you. Please read the attached information carefully to go over things we discussed. You were offered admission to the hospital but chose to go home and treat yourself there and follow-up with your primary care physician next week. Please be sure to stay well-hydrated as we discussed and eat at least 3 small nutritious meals daily. Please take a 1 day vitamin. Please take antibiotics as prescribed and until gone. Please follow-up next week with your primary care physician update on your ED visit. Please come back to the ED with new or concerning symptoms as we discussed. Scripts Cephalexin (KEFLEX) 500 Mg Capsule 1 CAP PO BID for UTI for 5 Days, #10 CAP Prov: SHAMEKA AGUAYO MD 01/30/22 Problem Qualifiers SHAMEKA AGUAYO MD January 30, 2022 18:52
[2022-01-30] MEDS ORDERED: IV RINGERS SOLUTION,LACTATED 1,000 ML IV ONE (19:00)
[2022-01-30 19:02] LABS: BASO # 0.1 x10^3/uL (0.0-0.2); BASO % 1 % (0-3); EOS # 0.5 x10^3/uL (0.0-0.7); EOS % 8 % (0-3); HEMOGLOBIN 10.8 g/dL (12.0-15.5); LYMPH # 1.4 x10^3/uL (1.0-4.8); LYMPH % 21 % (24-48); MEAN CORPUSCULAR HEMOGLOBIN 28 pg (25-35); MEAN CORPUSCULAR HGB CONC 33 g/dL (31-37); MEAN CORPUSCULAR VOLUME 86 fL (79-100); MONO # 0.5 x10^3/uL (0.0-1.1); MONO % 8 % (0-9); NEUT % 61 % (31-73); PLATELET COUNT 304 x10^3/uL (140-400); RED BLOOD COUNT 3.83 x10^6/uL (3.50-5.40); WHITE BLOOD COUNT 6.5 x10^3/uL (4.0-11.0)
[2022-01-30 19:12] LABS: CALCIUM 9.2 mg/dL (8.5-10.1); CREATININE 1.9 mg/dL (0.6-1.0); GFR 25.4; POTASSIUM 3.8 mmol/L (3.5-5.1)
[2022-01-30 19:33] LABS: BACTERIA,URINE MANY /HPF (0-FEW); CLARITY,URINE HAZY; COLOR,URINE YELLOW; GLUCOSE,URINE NEG (NEG); NITRITE,URINE POS (NEG); SQUAMOUS EPITHELIAL CELL,UR FEW /LPF; UROBILINOGEN,URINE 0.2 mg/dL (0.2 mg/dL); WBC,URINE TNTC /HPF (0-4)
--- NOTE | 2022-01-30 19:39 | RAD ---
RS Compliance Statement: One or more of the following individualized dose reduction techniques were utilized for this examinat ion: 1. Automated exposure control 2. Adjustment of the mA and/or kV according to patient size 3. Use of iterative reconstruction technique CT HEAD WITHOUT CONTRAST History: Reason: syncope, fall / Spl. Instructions: / History: Comparison: CT head without contrast November 29, 2020. Technique: Axial images are obtained of the head from the skull base through the vertex without IV co ntrast. Findings: No mass-effect, midline shift, extra-axial fluid collection, hemorrhage, or obvious acute infarction is identified. Basilar cisterns are patent. The ventricles and sulci are prominent, consistent with generalized cerebral atrophy. There is perive ntricular white matter hypoattenuation. This is a nonspecific finding but is commonly due to chronic small vessel ischemic disease. Bone windows demonstrate no acute calvarial abnormality. The visualized paranasal sinuses are clear. Mastoid air cells are well aerated. IMPRESSION: No acute intracranial abnormality. Electronically signed by: Yovanny Licona MD (01/30/2022 7:37 PM) [facility]
[2022-01-30] MEDS ORDERED: CEPH500C PO (19:57)
[2022-01-30] MEDS ORDERED: cefTRIAXone SODIUM 1 GM VIAL ONE (20:08)
[2022-01-30 20:15] VITALS: BP 137/55
== END 2022-01-30 20:29 | disposition home or self-care (01) ==
LOC: ER 18:00
DX: N39.0 Urinary tract infection, site not specified (principal); R42 Dizziness and giddiness; M19.90 Unspecified osteoarthritis, unspecified site; J45.909 Unspecified asthma, uncomplicated; K21.9 Gastro-esophageal reflux disease without esophagitis; F03.90 Unspecified dementia, unspecified severity, without behavioral disturbance, psychotic disturbance, mood disturbance, and anxiety; I10 Essential (primary) hypertension; E78.00 Pure hypercholesterolemia, unspecified; Z87.440 Personal history of urinary (tract) infections; Z90.49 Acquired absence of other specified parts of digestive tract; Z88.2 Allergy status to sulfonamides; Z88.1 Allergy status to other antibiotic agents; Z88.5 Allergy status to narcotic agent; Z88.8 Allergy status to other drugs, medicaments and biological substances
CPT/HCPCS: 36415; 70450; 80048; 81001; 83735; 84484; 85025; 87077; 87086; 87186; 96361; 96365; 99284; J0696; J7120